=== PATIENT | female | born 1940 | race Caucasian/White ===

== ENCOUNTER 2020-07-12 18:54 | Emergency (ER) | payer MEDICARE ==
--- OUTSIDE RECORDS SUMMARY | 2020-07-12 19:12 | EXTERNAL MEDICAL SUMMARY RPT | Continuity of Care Document ---
:1940 Demographics Phone Unavailable Preferred Language Unknown Marital Status Unknown Sikhism Affiliation Unknown Race Unknown Ethnic Group Unknown Author Organization [facility] Address [address] [place] [address] Phone Allergies Encounters Medications Problems Results
[2020-07-12 19:35] LABS: BASOPHILS # (AUTO) 0.1 10^3/uL (0.0-0.1); BASOPHILS % (AUTO) 1.1 %; EOSINOPHILS # (AUTO) 0.3 10^3/uL (0.0-0.7); EOSINOPHILS % (AUTO) 5.3 %; HCT - HEMATOCRIT 37.2 % (37.0-47.0); LYMPHOCYTES # (AUTO) 1.2 10^3/uL (1.5-3.5); LYMPHOCYTES % (AUTO) 19.9 %; MEAN CORPUSCULAR HEMOGLOBIN 30.2 pg (27.0-31.0); MEAN CORPUSCULAR HGB CONC 32.3 g/dL (32.0-36.0); MEAN CORPUSCULAR VOLUME 93.7 fL (81.0-99.0); MEAN PLATELET VOLUME 9.2 fL (7.9-10.8); MONOCYTES # (AUTO) 0.4 10^3/uL (0.0-1.0); MONOCYTES % (AUTO) 6.3 %; NEUTROPHILS # (AUTO) 4.2 10^3/uL (1.5-6.6); NEUTROPHILS % (AUTO) 67.1 %; PLT - PLATELET COUNT 273 10^3/uL (130-450); RED BLOOD COUNT 3.97 10^6/uL (4.20-5.40); RED CELL DISTRIBUTION WIDTH 13.1 % (12.0-15.0); WHITE BLOOD COUNT 6.2 x10^3/uL (4.8-10.8)
[2020-07-12 19:43] LABS: CALCIUM 8.8 mg/dL (8.5-10.3); CREATININE 0.8 mg/dL (0.4-1.0); POTASSIUM 3.6 mmol/L (3.5-5.0)
--- NOTE | 2020-07-12 19:56 | ED Physician Documentation ---
History of Present Illness - Stated complaint Stated Complaint: LT LEG SWELLING - Chief complaint Chief Complaint: Ext Problem - Additonal information Additional information: 80-year-old female presents to the emergency department for evaluation of acute left lower leg swelling. She reports that about 3 weeks ago she was stepping into a van and felt a pop in the lateral side of her knee. She was in a hurry and did not think much of it. The knee has remained swollen. However this morning when she was getting out of the shower and toweling off she noted that she had fairly significant swelling of the left foot ankle as well as calf. She measured the circumference between the right and left calf and noted a 2 inch variance. She has no history of blood clots or cancer. She is not anticoagulated. No recent immobilizations or surgeries. She is here to ensure that she does not have a deep vein thrombosis. Review of Systems Constitutional: denies: Fever, Chills Eyes: reports: Reviewed and negative Ears: reports: Reviewed and negative Nose: reports: Reviewed and negative Throat: reports: Reviewed and negative Cardiac: reports: Reviewed and negative Respiratory: reports: Reviewed and negative GI: reports: Reviewed and negative : reports: Reviewed and negative Skin: reports: Reviewed and negative Musculoskeletal: reports: Extremity pain (Left calf and left leg.), Extremity swelling Neurologic: reports: Reviewed and negative PD PAST MEDICAL HISTORY - Past Medical History Past Medical History: Yes Cardiovascular: Hypertension Respiratory: None Neuro: None Endocrine/Autoimmune: HyPOthyroidism GI: None FRUIT BUYER: None : None HEENT: Other Psych: None Musculoskeletal: Osteoarthritis Derm: None - Past Surgical History Past Surgical History: Yes General: Cholecystectomy, Appendectomy, Colonoscopy, Other /FRUIT BUYER: Hysterectomy HEENT: Tonsil/Adenoidectomy - Present Medications Home Medications: Ambulatory Orders Medication Instructions Recorded Confirmed Calcium Carbonate [Calcium] 500 mg PO DAILY 01/15/15 04/05/15 Levothyroxine [Synthroid] 25 mcg PO QDAC 01/15/15 04/05/15 Multivitamin [Multivitamins] 1 cap PO DAILY 01/15/15 04/05/15 Ared 1 tab PO BID 07/12/20 Lisinopril [Prinivil] 5 mg PO DAILY 07/12/20 07/12/20 - Allergies Allergies/Adverse Reactions: Allergies Allergy/AdvReac Type Severity Reaction Status Date / Time Penicillins Allergy Rash Verified 07/12/20 19:00 - Social History Does the pt smoke?: No Smoking Status: Never smoker Does the pt drink ETOH?: No Does the pt have substance abuse?: No - Immunizations Immunizations are current?: Yes - POLST Patient has POLST: No PD ED PE EXPANDED - General General: Alert, No acute distress, Well developed/nourished - Cardiac Cardiac: Regular Rate, Radial strong equal, Pedal strong equal, Cap refill < 2 sec - Respiratory Respiratory: Clear to ausultation chandan. No: Distress, Labored - Abdomen Abdomen: Normal Bowel sounds. No: Tender to palpation - Extremities Extremities: Normal, Tenderness, Pedal edema L (Swelling with mild erythema of the left lower anterior leg and medial ankle. Swelling extends from the ankle to the mid calf with posterior calf pain tenderness elicited.), Left calf TTP/cord. No: Deformity - Neuro Neuro: Alert and Oriented X 3, CNII-XII intact - GCS Eye Opening: Spontaneous Motor: Obeys Commands Verbal: Oriented Total: 15 Results - Vitals Vitals: Vital Signs - 24 hr 07/12/20 19:00 Temperature 36.5 C Heart Rate 82 Respiratory 16 Rate Blood Pressure 168/79 H O2 Saturation 98 Oxygen O2 Source Room air - Labs Labs: Laboratory Tests 07/12/20 07/12/20 07/12/20 17:29 19:29 19:29 WBC 6.2 RBC 3.97 L Hgb 12.0 Hct 37.2 MCV 93.7 MCH 30.2 MCHC 32.3 RDW 13.1 Plt Count 273 MPV 9.2 Neut # (Auto) 4.2 Lymph # (Auto) 1.2 L [place] # (Auto) 0.4 Eos # (Auto) 0.3 Baso # (Auto) 0.1 Absolute Nucleated RBC 0.00 Nucleated RBC % 0.0 Sodium 140 Potassium 3.6 Chloride 104 Carbon Dioxide 28 Anion Gap 8.0 BUN 25 H Creatinine 0.8 Estimated GFR (MDRD) 69 L Glucose 117 H Calcium 8.8 C-Reactive Protein < 1.0 - Rads (name of study) US DVT left leg Radiology: EMP read contemporaneously, See rad report, Other (Per radiology technologist no DVT is seen. However there is a fairly large calf hematoma within the gastrocnemius.) PD MEDICAL DECISION MAKING - ED course Complexity details: reviewed results, re-evaluated patient, d/w patient ED course: 80-year-old female presents to the emergency department for evaluation of acute left lower leg swelling and calf pain that she noted this morning when she got out of the shower. However this does follow a history about 3 weeks ago when she felt a pop in her left knee when getting into a van. She denies any falls trauma bumps or bruises otherwise. She does have some mild erythema of the lower anterior leg. She has no fevers. Screening labs reveal no leukocytosis. CRP is not elevated. My suspicion for acute infection or cellulitis is low. Will defer antibiotics. We did get an ultrasound of the lower extremity giving the posterior calf pain swelling and tenderness. Thankfully no DVT is seen however there is a rather large hematoma seen within the gastrocnemius itself. The etiology of this is unclear at this time. These findings were discussed with the patient. She is to be discharged home. We do recommend elevation of the leg ice for discomfort. Emergent return precautions were discussed for increased swelling, worsening pain, fevers red streaking or failure of symptoms to resolve. Departure - Departure Disposition: 01 Home, Self Care Clinical Impression: Hematoma Condition: Stable Record reviewed to determine appropriate education?: Yes Instructions: ED Hematoma Comments: Margaret you are seen in the emergency department today for acute swelling and pain in your left lower leg. We did do screening labs to check for signs of infection and these were reassuringly normal. We also did an ultrasound to look for a possible blood clot. Thankfully no deep vein thrombosis or blood clot is seen. However the ultrasound does show that you have a fairly large hematoma in your gastrocnemius or calf muscle. The cause of this is not clear at this time. Most hematomas will resolve on their own. Warm compress or ice can be used to help with any discomfort. Gentle massage can also be used. In rare cases some hematomas will not resolve on their own and may need. Therefore if you have increased swelling, worsening pain worsening redness or fevers please return to the ER for a second evaluati on. Please discuss this emergency department visit with your primary care doctor as soon as you are able.
--- NOTE | 2020-07-12 20:35 | XRAY Report ---
PROCEDURE: Ankle 3 View LT INDICATIONS: swelling TECHNIQUE: 3 views of the ankle were acquired. COMPARISON: None FINDINGS: No acute fracture. Screw fixation of the lateral malleolus. The hardware appears intact without evide nce of loosening. Tibiotalar joint degeneration, mild. There is diffuse midfoot sclerosis and spurrin g IMPRESSION: No acute fracture identified. Postsurgical and chronic degenerative changes. Reviewed by: Lonnie Lainez MD on 07/12/2020 8:34 PM PDT Approved by: Lonnie Lainez MD on 07/12/2020 8:34 PM PDT Station ID: [id number]
[2020-07-12 21:42] VITALS: BP 161/97
--- NOTE | 2020-07-12 21:44 | Ultrasound Report ---
PROCEDURE: Duplex Ext Veins Left INDICATIONS: left leg swelling after pop in knee TECHNIQUE: Real-time imaging, as well as color and pulse Doppler interrogation, were performed of the lower extr emity deep veins from the inguinal ligament to the popliteal fossa. COMPARISON: None. FINDINGS: The deep veins are normally compressible, and free of intraluminal thrombus. Color and pu lse Doppler demonstrate normal phasic intraluminal flow. There is normal augmentation response to di stal compression maneuver. The calf veins are not well visualized secondary to severe edema. 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 There is a complex fluid collection the posterior calf measuring 6.1 x 1.0 x 4.7 cm suggestive of intramuscular hematoma. IMPRESSION: No evidence of deep venous thrombosis. Complex fluid collection within the posterior calf suggestive of intramuscular hematoma Covington's cyst Reviewed by: Lonnie Lainez MD on 07/12/2020 9:43 PM PDT Approved by: Lonnie Lainez MD on 07/12/2020 9:43 PM PDT Station ID: [id number]
== END 2020-07-12 21:42 | disposition home or self-care (01) ==
LOC: ED 18:54
DX: M79.81 Nontraumatic hematoma of soft tissue (principal); M79.662 Pain in left lower leg; M71.22 Synovial cyst of popliteal space [Baker], left knee; I10 Essential (primary) hypertension
CPT/HCPCS: 36415; 80048; 85025; 86140; 99283; 99284

== ENCOUNTER 2023-07-07 11:18 | Emergency (ER) | payer MEDICARE ==
--- NOTE | 2023-07-07 12:03 | ED Physician Documentation ---
PD HPI BACK PAIN - Stated complaint Stated Complaint: LWR BACK PX - Chief complaint Chief Complaint: Back Pain - History obtained from History obtained from: Patient - History of Present Illness Timing - onset: How many months ago (2) Timing - duration: Months (2) Timing - details: Gradual onset Pain level max: 5 Pain level now: 5 Location: Lower, Right, Left Quality: Pain, Spasm, Similar to prior episodes Associated symptoms: No: Fever, Weakness, Numbness, Incontinent of urine, Unable to urinate, Hematuria, Incontinent of stool Improves with: Rest Worsened by: Movement Contributing factors: Other (fell about 2 months ago, negative xrays at that time. states has continued pain.). No: Anticoagulated, Cancer, IVDA Review of Systems Constitutional: denies: Fever, Chills Respiratory: denies: Cough GI: denies: Nausea, Vomiting, Diarrhea Skin: denies: Rash Musculoskeletal: denies: Neck pain, Back pain Neurologic: denies: Headache PD PAST MEDICAL HISTORY - Past Medical History Past Medical History: Yes Cardiovascular: Hypertension Respiratory: None Neuro: None Endocrine/Autoimmune: HyPOthyroidism GI: None OBSTETRICIAN AND GYNAECOLOGIST: Fibroids : None HEENT: Other Psych: None Musculoskeletal: Osteoarthritis Derm: None - Past Surgical History Past Surgical History: Yes General: Cholecystectomy, Appendectomy, Colonoscopy, Other /OBSTETRICIAN AND GYNAECOLOGIST: Hysterectomy HEENT: Tonsil/Adenoidectomy - Present Medications Home Medications: Ambulatory Orders Medication Instructions Recorded Confirmed Calcium Carbonate [Calcium] 500 mg PO DAILY 01/15/15 07/07/23 Levothyroxine [Synthroid] 25 mcg PO QDAC 01/15/15 07/07/23 Multivitamin [Multivitamins] 1 cap PO DAILY 01/15/15 07/07/23 Ared 1 tab PO BID 07/12/20 07/07/23 lisinopriL [Prinivil] 5 mg PO DAILY 07/12/20 07/07/23 HYDROcod/ACETAM 5/325 [[place] 5/325] 1 - 2 ea PO Q6H PRN #14 tablet 07/07/23 - Allergies Allergies/Adverse Reactions: Allergies Allergy/AdvReac Type Severity Reaction Status Date / Time Penicillins Allergy Rash Verified 07/07/23 11:39 - Social History Does the pt smoke?: No Smoking Status: Never smoker Does the pt drink ETOH?: No Does the pt have substance abuse?: No - Immunizations Immunizations are current?: Yes - POLST Patient has POLST: No PD ED PE NORMAL - Vitals Vital signs reviewed: Yes - General General: Alert and oriented X 3, No acute distress - HEENT HEENT: Moist mucous membranes - Neck Neck: Supple, no meningeal sign, No bony TTP - Cardiac Cardiac: RRR, Strong equal pulses - Respiratory Respiratory: No respiratory distress, Clear bilaterally - Abdomen Abdomen: Soft, Non tender, Non distended - Back Back: No CVA TTP, No spinal TTP, Other (No midline tenderness to palpation or percussion. No step-off or deformity.) - Derm Derm: Warm and dry - Extremities Extremities: No edema, No calf tenderness / cord - Neuro Neuro: Alert and oriented X 3, No motor deficit, No sensory deficit, Other (Normal bilateral lower extremity patellar and ankle jerk reflexes. Normal great toe extension bilaterally. no saddle anesthesia) - Psych Psych: Normal mood, Normal affect Results - Vitals Vitals: Vital Signs - 24 hr 07/07/23 07/07/23 11:41 13:19 Temperature 36.5 C Heart Rate 76 78 Respiratory 16 18 Rate Blood Pressure 127/70 124/76 O2 Saturation 99 98 Oxygen O2 Source Room air - Labs Labs: Laboratory Tests 07/07/23 11:55 Urine Color YELLOW Urine Clarity CLEAR Urine pH 6.5 Ur Specific [place] 1.015 Urine Protein NEGATIVE Urine Glucose (UA) NEGATIVE Urine Ketones NEGATIVE Urine Occult Blood NEGATIVE Urine Nitrite NEGATIVE Urine Bilirubin NEGATIVE Urine Urobilinogen 0.2 (NORMAL) Ur Leukocyte Esterase NEGATIVE Ur Microscopic Review NOT INDICATED Urine Culture Comments NOT INDICATED PD Medical Decision Making - ED course Complexity details: reviewed results, re-evaluated patient, considered differential (No cauda equina, no spinal epidural abscess, no fracture, no aortic dissection or evidence of aneursym rupture), d/w patient ED course: No acute findings on x-ray. No abnormalities on urinalysis. Appears to be an acute exacerbation of her chronic pain. No indication for CT or MRI emergently today. Will place on pain medications for home and have her follow-up with her PCP for further care. No evidence of cauda equina, epidural abscess. Patient did develop right upper quadrant pain while in the emergency department. She has had a cholecystectomy in the past. Bedside ultrasound reveals a normal- appearing liver. Normal-appearing kidney. No hydronephrosis. No nausea or vomiting. No diarrhea. No constipation. We will have the patient monitor this pain at home and return if she worsens. Can consider laboratory testing at that time. Recommend that she follow-up closely with her PCP for further care. Abdomen is soft, nontender nondistended on serial exam. Patient counseled regarding signs and symptoms for which I believe and urgent re-evaluation would be necessary. Patient with good understanding of and agreement to plan and is comfortable going home at this time This document was made in part using voice recognition software. While efforts are made to proofread this document, sound alike and grammatical errors may occur. Departure - Departure Disposition: Home, Self Care Clinical Impression: Low back pain Qualifiers: Chronicity: acute Back pain laterality: bilateral Sciatica presence: without sciatica Qualified Code(s): M54.50 - Low back pain, unspecified Condition: Good Instructions: ED Neck Back Pain General Follow-Up: Jaime Nam PA [Primary Care Provider] - Prescriptions: HYDROcod/ACETAM 5/325 [[place] 5/325] 1 - 2 ea PO Q6H PRN #14 tablet PRN Reason: Pain Comments: Your urinalysis and x-ray do not show any acute abnormalities today. You do have a significant arthritis in your spine. You also have what is called an anterolisthesis of L4-L5, these are not new. Please follow-up with your doctor for further care and further evaluation. Your doctor may want to consider an MRI of your back. I am prescribing a short course of narcotic pain medication for you. These are potentially dangerous and addictive medications that should be used carefully. These medications may constipate you. Take an [id number] stool softener (docusate) twice daily with plenty of water while taking these medications. If you go 24 hours without a bowel movement, take [id number] miralax, per package instructions. Do not drink or drive while taking these medications. If you received narcotic or sedating medications while in the emergency department, do not drive for 24 hours. Store this medication in a safe, secure place and out of reach of children. It is a violation of federal law to give or sell this medication to another person or to use in a manner other than prescribed. The ED will not refill narcotic prescriptions, including prescriptions lost or stolen. To dispose of unwanted medications: 1. [facility] at [address] in [place] has a medication drop box. They accept prescription medications (in pill form) Saturday through Saturday 9:00 a.m. to 5:00 p.m. 2. The [facility] accepts prescription medications (in pill form only) for disposal year round. Call for more information. 3. Contact the [facility] for the next [facility] sponsored prescription drug collection event. , [phone], or [phone]; Discharge Date/Time: 07/07/23 13:19
--- NOTE | 2023-07-07 12:41 | XRAY Report ---
PROCEDURE: Lumbar Spine 2-3V INDICATIONS: low back pain, fall 2 months ago TECHNIQUE: 3 views of the lumbar spine were acquired. COMPARISON: None. FINDINGS: Bones: 5 [id number] vertebrae are present. Grade 2 anterolisthesis of L4 and L5. Grade 2 kashif listhesis of L5 on S1. No vertebral body compression fractures. No suspicious bony lesions. Mild d isc height loss. Soft tissues: Overlying bowel gas pattern is normal. No suspicious soft tissue calcifications. Vas cular calcifications. Surgical clips overlie the right abdomen. IMPRESSION: No acute fracture identified by radiograph. Anterolisthesis of L4 and L5. Reviewed by: Julio Waller MD on 07/07/2023 11:39 AM STEPHANIA Approved by: Julio Waller MD on 07/07/2023 11:39 AM STEPHANIA Station ID: [id number]
[2023-07-07 12:44] LABS: BILIRUBIN,URINE NEGATIVE (NEGATIVE); CLARITY,URINE CLEAR (CLEAR); GLUCOSE, URINE (UA) NEGATIVE (NEGATIVE); KETONES,URINE (UA) NEGATIVE (NEGATIVE); LEUKOCYTE ESTERASE, URINE NEGATIVE (NEGATIVE); NITRITE,URINE NEGATIVE (NEGATIVE); OCCULT BLOOD,URINE NEGATIVE (NEGATIVE); PH,URINE 6.5 PH (5.0-7.5); PROTEIN,URINE NEGATIVE (NEGATIVE); UROBILINOGEN,URINE 0.2 (NORMAL) E.U./dL (NORMAL)
[2023-07-07 13:22] VITALS: BP 124/76; O2SAT 98
== END 2023-07-07 13:19 | disposition home or self-care (01) ==
LOC: ED 11:18
DX: M54.50 Low back pain, unspecified (principal); I10 Essential (primary) hypertension; E03.9 Hypothyroidism, unspecified; W19.XXXA Unspecified fall, initial encounter
CPT/HCPCS: 81001; 81003; 87086; 99284

== ENCOUNTER 2024-02-23 17:28 | Inpatient (IN) ==
--- NOTE | 2024-02-23 17:55 | ED Physician Documentation ---
History of Present Illness Stated complaint Stated Complaint: GENERALIZED WEAKNESS Chief complaint Chief Complaint: General History obtained from History obtained from: Patient Additonal information Additional information: She has a history of stage IV appendiceal cancer. She lives at home with her who has his own health issues. No other and home care. She is getting palliative care and there was a discussion of home health, but they have not started it yet. She presents feeling quite weak, today she got so weak that she had to crawl around the house because she could not walk. She thinks is because of poor appetite. She has had a 35 pound weight loss in the last 3 months. She is still getting chemotherapy. She denies any pain. Has been moving her bowels. No fevers or chills. No urinary complaints. Meds/Allgy Home Medications Ambulatory Orders Medication Instructions Recorded Confirmed multivitamin 1 cap PO DAILY 01/15/15 02/18/24 levothyroxine 75 mcg tablet 75 mcg PO QDAC 12/14/23 02/18/24 vitamins A,C,W-pzks-swlnuf 2,148 2 tab PO BID 12/14/23 02/18/24 mcg-113 mg-45 mg-17.4 mg tablet (PreserVision AREDS) ascorbic acid (vitamin C) 500 mg 500 mg PO QDAY 02/02/24 02/18/24 capsule calcium carbonate 500 mg PO BID 02/02/24 02/18/24 dicyclomine 10 mg capsule 10 mg PO QID PRN abdominal pain 02/02/24 02/18/24 #120 caps ondansetron HCl 8 mg tablet 8 mg PO TID PRN 02/02/24 02/18/24 prochlorperazine maleate 10 mg 10 mg PO TID PRN nausea and 02/02/24 02/18/24 tablet vomiting sennosides 8.6 mg capsule (senna) 8.6 mg PO QDAY 02/02/24 02/18/24 compression socks, medium #1 ea 02/18/24 02/18/24 furosemide 20 mg tablet 20 mg PO QDAY 02/18/24 02/18/24 furosemide 40 mg tablet 40 mg PO QDAY #60 tabs 02/18/24 02/18/24 lidocaine 5 % topical patch 1 patch topical DAILY PRN pain #10 02/18/24 02/18/24 patches potassium chloride 10 mEq 20 meq (2 x 10 mEq) PO Q OTHER DAY 02/18/24 02/18/24 tablet,extended release (Klor-Con) #60 tabs loperamide 2 mg capsule (Imodium 2 mg PO QID PRN loose stool #30 02/20/24 A-D) caps Allergies Allergies Allergy/AdvReac Type Severity Reaction Status Date / Time Penicillins Allergy Rash Verified 02/23/24 17:45 [facility] Medical History Medical History (Updated 02/23/24 @ 20:17 by Miguel Wu MD) Swelling of both lower extremities Essential hypertension Osteoporosis Hypothyroidism Appendicitis Gall stone Surgical History Surgical History History of ankle surgery S/P cholecystectomy History of appendectomy H/O: hysterectomy Social History Social History Smoking Status: Never smoker Do you dip or chew tobacco?: No Do you vape?: No Living arrangement: At home Marital Status: Living Condition: With spouse/s.o. Support Person: Yes Relationship: Living Situation Details: Eldest Physical Activity: Walking Level: Assisted Home Mobility Equipment: [employer] Physical - Functional Details: Was walking couple miles independently until recently Do you feel safe in your home environment?: Yes Suffered physical, verbal, emotional, or financial abuse?: No History of Abuse: No ETOH Use: None Substance Use: denies use Are you sexually active?: No Are you following a diet prescribed by a doctor: No Are you following a special diet: No POLST Patient has POLST: Yes POLST Status: DNR (Selective measures only) Exam Constitutional She appears chronically but not acutely ill and cachectic Respiratory breath sounds equal bilaterally, normal respiratory effort and clear to auscultation bilaterally Cardiovascular normal heart rate noted, regular rhythm noted and no murmur Gastrointestinal abdomen soft to palpation and nontender to palpation Extremities Bilateral pedal edema with weeping of the right foot especially. The swelling is better than it has been she says but the weeping is worse and more painful and cellulitic with cellulitis of the entire right foot. Neurology GCS 15 Results Vitals Vitals: Vital Signs - 24 hr 02/23/24 17:39 02/23/24 18:15 02/23/24 18:30 Temperature 36.4 C L Pulse Rate 80 75 67 Respiratory Rate 18 15 Blood Pressure 94/55 L 86/54 L 81/53 L O2 Saturation 90 L 97 100 O2 Source Room air Room air Pain Intensity 4 4 02/23/24 19:00 02/23/24 19:30 Temperature Pulse Rate 70 75 Respiratory Rate 18 Blood Pressure 94/58 L 101/61 O2 Saturation 100 100 O2 Source Room air Room air Pain Intensity 4 4 Oxygen O2 Source Room air Labs Labs: Laboratory Tests 02/23/24 02/23/24 18:54 19:34 WBC 15.8 H RBC 2.93 L Hgb 7.9 L Hct 25.6 L MCV 87.4 MCH 27.0 MCHC 30.9 L RDW 18.2 H Plt Count 159 MPV 10.2 Neut # (Auto) 14.1 H Lymph # (Auto) 0.9 L [place] # (Auto) 0.7 Eos # (Auto) 0.0 Baso # (Auto) 0.0 Absolute Nucleated RBC 0.05 Nucleated RBC % 0.3 Sodium 139 Potassium 3.4 L Chloride 100 L Carbon Dioxide 32 Anion Gap 7.0 BUN 50 H Creatinine 0.9 Estimated GFR (MDRD) 60 L Glucose 99 Lactic Acid 1.2 Calcium 7.5 L Phosphorus 3.3 Magnesium 1.7 Total Bilirubin 0.3 AST 22 ALT 17 Alkaline Phosphatase 53 Total Creatine Kinase 86 Total Protein 3.6 L Albumin 2.2 L Globulin 1.4 L Albumin/Globulin Ratio 1.6 Urine Color YELLOW Urine Clarity CLEAR Urine pH 6.0 Ur Specific [place] 1.015 Urine Protein NEGATIVE Urine Glucose (UA) NEGATIVE Urine Ketones NEGATIVE Urine Occult Blood NEGATIVE Urine Nitrite NEGATIVE Urine Bilirubin NEGATIVE Urine Urobilinogen 0.2 (NORMAL) Ur Leukocyte Esterase NEGATIVE Ur Microscopic Review NOT INDICATED Urine Culture Comments NOT INDICATED PD Medical Decision Making ED course ED course: 84-year-old woman with stage IV appendiceal carcinoma presents with generalized weakness potentially due to poor appetite and dehydration. Will gently hydrate her. She has had recent problems with fluid overload as well. The right foot is angry and cellulitic. She does have an elevated white count. Blood pressure soft initially. Improved to 101/60 after IV fluids. No UTI. No pulmonary symptoms. She was still very weak after rehydration and could not sit up unassisted. Decision to admit was made at 8:15 PM on February 23, 2024, unfortunately no beds available in the hospital so will be boarding on IV antibiotics until that changes or she improves. Granddaughter updated by phone. Discharge Plan Discharge Patient Disposition: 66 [facility] DC/Xfer Condition: Serious Clinical Impression: Severe protein-calorie malnutrition, Peritoneal carcinomatosis, Weakness, Cellulitis of foot, right Prescriptions: No Action loperamide [Imodium A-D] 2 mg capsule 2 mg PO QID PRN (Reason: loose stool) Qty: 30 0RF multivitamin 1 EACH capsule 1 cap PO DAILY PreserVision AREDS 2,148 mcg-113 mg-45 mg-17.4mg tablet 2 tab PO BID Rx Instructions: administer with AM and PM meals levothyroxine 75 mcg tablet 75 mcg PO QDAC (DME) compression socks, medium Misc See Rx Instructions .Route Qty: 1 0RF Rx Instructions: As directed lidocaine 5 % adhesive patch,medicated 1 patch topical DAILY PRN (Reason: pain) Qty: 10 0RF Rx Instructions: apply to affected area for 12 hours and then off for 12 hours. ondansetron HCl 8 mg tablet 8 mg PO TID PRN Rx Instructions: Take every 6-8 hours as needed for nausea prochlorperazine maleate 10 mg tablet 10 mg PO TID PRN (Reason: nausea and vomiting) Rx Instructions: Take as 2nd antinausea med senna 8.6 mg capsule 8.6 mg PO QDAY calcium carbonate 500 mg calcium (1,250 mg) tablet,chewable 500 mg PO BID dicyclomine 10 mg capsule 10 mg PO QID PRN (Reason: abdominal pain) Qty: 120 2RF Rx Instructions: Start with 1-2 tabs daily. If does not help, then may take up to 2 more. ascorbic acid (vitamin C) 500 mg capsule 500 mg PO QDAY Rx Instructions: Take with iron daily furosemide 20 mg tablet 20 mg PO QDAY Rx Instructions: Take with 40 mg daily AM = 60 mg daily furosemide 40 mg tablet 40 mg PO QDAY Qty: 60 3RF Rx Instructions: Take with 20 mg daily AM = 60 mg daily potassium chloride [Klor-Con 10] 10 mEq tablet extended release 20 meq PO Q OTHER DAY Qty: 60 3RF Rx Instructions: Take with furosemide every other day Print Language: Romanian Stand Alone Forms: PCP List
[2024-02-23] MEDS: SODIUM CHLORIDE 0.9% 1,000 ML IV STA (18:30)
[2024-02-23 19:00] LABS: BASOPHILS % (AUTO) 0.2 %; HCT - HEMATOCRIT 25.6 % (37.0-47.0); HGB - HEMOGLOBIN 7.9 g/dL (12.0-16.0); LYMPHOCYTES # (AUTO) 0.9 10^3/uL (1.5-3.5); LYMPHOCYTES % (AUTO) 5.9 %; MEAN CORPUSCULAR HGB CONC 30.9 g/dL (32.0-36.0); MEAN CORPUSCULAR VOLUME 87.4 fL (81.0-99.0); MEAN PLATELET VOLUME 10.2 fL (7.9-10.8); MONOCYTES # (AUTO) 0.7 10^3/uL (0.0-1.0); MONOCYTES % (AUTO) 4.5 %; NEUTROPHILS # (AUTO) 14.1 10^3/uL (1.5-6.6); NEUTROPHILS % (AUTO) 88.9 %; NRBC ABSOLUTE COUNT (AUTO) 0.05 x10^3/uL; NUCLEATED RED BLOOD CELLS AUTO 0.3 /100WBC; PLT - PLATELET COUNT 159 10^3/uL (130-450); RED BLOOD COUNT 2.93 10^6/uL (4.20-5.40); RED CELL DISTRIBUTION WIDTH 18.2 % (12.0-15.0); WHITE BLOOD COUNT 15.8 x10^3/uL (4.8-10.8)
[2024-02-23 19:20] LABS: ALBUMIN 2.2 g/dL (3.2-5.5); ALBUMIN/GLOBULIN RATIO 1.6 (1.0-2.2); BILIRUBIN,TOTAL 0.3 mg/dL (0.2-1.0); CALCIUM 7.5 mg/dL (8.5-10.3); CREATININE 0.9 mg/dL (0.6-1.3); MAGNESIUM 1.7 mg/dL (1.7-2.3); PHOSPHORUS 3.3 mg/dL (2.5-5.0); POTASSIUM 3.4 mmol/L (3.5-4.5); TOTAL PROTEIN 3.6 g/dL (6.4-8.9)
[2024-02-23 19:40] LABS: BILIRUBIN,URINE NEGATIVE (NEGATIVE); GLUCOSE, URINE (UA) NEGATIVE (NEGATIVE); KETONES,URINE (UA) NEGATIVE (NEGATIVE); LEUKOCYTE ESTERASE, URINE NEGATIVE (NEGATIVE); NITRITE,URINE NEGATIVE (NEGATIVE); OCCULT BLOOD,URINE NEGATIVE (NEGATIVE); PROTEIN,URINE NEGATIVE (NEGATIVE); UROBILINOGEN,URINE 0.2 (NORMAL) E.U./dL (NORMAL)
[2024-02-23 19:52] LABS: CLARITY,URINE CLEAR (CLEAR)
[2024-02-23] MEDS ORDERED: ceFAZolin 1 GM VIAL IVP SCH (21:00)
[2024-02-23] MEDS: ceFAZolin 1 GM VIAL IVP STA (21:11)
[2024-02-23] MEDS ORDERED: ONDANSETRON 4 MG/2 ML VIAL IVP PRN (22:02)
[2024-02-23] MEDS ORDERED: ACETAMINOPHEN 500 MG TABLET PO PRN (22:02)
[2024-02-24 05:33] LABS: BASOPHILS % (AUTO) 0.1 %; EOSINOPHILS % (AUTO) 0.1 %; HCT - HEMATOCRIT 25.9 % (37.0-47.0); LYMPHOCYTES # (AUTO) 1.1 10^3/uL (1.5-3.5); LYMPHOCYTES % (AUTO) 7.3 %; MEAN CORPUSCULAR HEMOGLOBIN 26.8 pg (27.0-31.0); MEAN CORPUSCULAR HGB CONC 30.9 g/dL (32.0-36.0); MEAN CORPUSCULAR VOLUME 86.9 fL (81.0-99.0); MEAN PLATELET VOLUME 9.8 fL (7.9-10.8); MONOCYTES # (AUTO) 0.6 10^3/uL (0.0-1.0); MONOCYTES % (AUTO) 4.2 %; NEUTROPHILS # (AUTO) 12.6 10^3/uL (1.5-6.6); NEUTROPHILS % (AUTO) 87.7 %; PLT - PLATELET COUNT 185 10^3/uL (130-450); RED BLOOD COUNT 2.98 10^6/uL (4.20-5.40); RED CELL DISTRIBUTION WIDTH 18.3 % (12.0-15.0); WHITE BLOOD COUNT 14.4 x10^3/uL (4.8-10.8)
[2024-02-24 05:47] LABS: CALCIUM 7.4 mg/dL (8.5-10.3); CREATININE 0.7 mg/dL (0.6-1.3); POTASSIUM 2.8 mmol/L (3.5-4.5)
[2024-02-24] MEDS: LEVOTHYROXINE 75 MCG TABLET PO SCH (07:00)
[2024-02-24] MEDS: PANTOPRAZOLE 40 MG TABLET PO SCH (07:00)
[2024-02-24] MEDS: CALCIUM GLUC 1,000MG/50ML-NACL 1,000 MG/50 ML BAG IV STA (08:10)
[2024-02-24] MEDS: POTASSIUM CHLOR 10 MEQ/100 ML 10 MEQ/100 ML BAG IV ONE (09:15)
[2024-02-24] MEDS: MULTIVITAMIN TABLET PO SCH (09:15)
[2024-02-24] MEDS: ceFAZolin 1 GM VIAL IVP SCH (09:50)
[2024-02-24] MEDS: ENOXAPARIN 40 MG/0.4 ML SYRINGE SUBQ SCH (09:51)
--- NOTE | 2024-02-24 15:43 | PHARMACY PROGRESS NOTE ---
Best Possible Medication History Admit Date and Time: Home Medications Medication Instructions Recorded Confirmed Type multivitamin 1 cap PO DAILY 01/15/15 02/23/24 History levothyroxine 75 mcg tablet 75 mcg PO QDAC 12/14/23 02/23/24 History vitamins A,C,M-cppv-ndclsf 2,148 1 tab PO BID 12/14/23 02/24/24 History mcg-113 mg-45 mg-17.4 mg tablet (PreserVision AREDS) ascorbic acid (vitamin C) 500 mg 500 mg PO QDAY 02/02/24 02/23/24 History capsule calcium carbonate 500 mg PO BID 02/02/24 02/23/24 History dicyclomine 10 mg capsule 10 mg PO QID PRN abdominal pain 02/02/24 02/23/24 Rx #120 caps prochlorperazine maleate 10 mg 10 mg PO TID PRN nausea and 02/02/24 02/23/24 History tablet vomiting compression socks, medium #1 ea 02/18/24 02/23/24 Rx furosemide 20 mg tablet 20 mg PO BID 02/18/24 02/24/24 History lidocaine 5 % topical patch 1 patch topical DAILY PRN pain #10 02/18/24 02/23/24 Rx patches potassium chloride 10 mEq 20 meq (2 x 10 mEq) PO Q OTHER DAY 02/18/24 02/23/24 Rx tablet,extended release (Klor-Con) #60 tabs loperamide 2 mg capsule (Imodium 2 mg PO QID PRN loose stool #30 02/20/24 02/23/24 Rx A-D) caps Processed by: Pharmacy (Medication reconciliation completed by Sticker OperatorReyes) Medications reviewed in ED?: Yes Medication History completed: Yes Patient Interview: Completed [facility] Statement: As the person ultimately responsible for medication therapy, providers are able to order a medication from an existing home medication list in [facility] via the "Reconcile Routine" prior to Confirmation of that medication by ground crewman aircraft support. Such practice is discouraged except when the physician, in their clinical judgment, deems that a medical need exists for a medication without regard to previous use.
--- NOTE | 2024-02-24 16:57 | HISTORY & PHYSICAL EXAMINATION ---
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 She states that she lives in a two-story floor house, and was having difficulty going up the stairs. She said she crawled up. She was not lightheaded or dizzy, nor did she fall, but she did say that she felt pretty weak as she was try to go up. She says that she has not been eating and drinking much. She also states that she has had some loose stools. She has had about 2-3 bowel movements per day. This is fairly normal for her. She is on home Imodium. She denies any fevers, chills, shortness of breath, cough. She has chronic swelling of her bilateral lower extremities. She has been taking her Lasix at home. Her left foot has multiple blisters with erythema surrounding it. She states it looks better than prior. There is some purulent discharge coming out of one of the bullae. Her last chemotherapy was 02/12. She is continuing with chemotherapy. She sees Dr. Church. I did review the last note by him on 02/12. At that time, she remained on FOLFOX therapy. She would like to continue with this as well. In the ED, patient has been hypotensive with blood pressure in the 90s over 50s, heart rate was 74, respiratory rate was 77, she has been afebrile, saturating 99% on room air. She has a leukocytosis of 14.4, anemia with hemoglobin of 8, potassium of 2.8, CRP is elevated at 27.5. Urinalysis was negative. Meds/Allgy Home Medications Ambulatory Orders Medication Instructions Recorded Confirmed multivitamin 1 cap PO DAILY 01/15/15 02/23/24 levothyroxine 75 mcg tablet 75 mcg PO QDAC 12/14/23 02/23/24 vitamins A,C,G-nkdk-qonhfx 2,148 1 tab PO BID 12/14/23 02/24/24 mcg-113 mg-45 mg-17.4 mg tablet (PreserVision AREDS) ascorbic acid (vitamin C) 500 mg 500 mg PO QDAY 02/02/24 02/23/24 capsule calcium carbonate 500 mg PO BID 02/02/24 02/23/24 dicyclomine 10 mg capsule 10 mg PO QID PRN abdominal pain 02/02/24 02/23/24 #120 caps prochlorperazine maleate 10 mg 10 mg PO TID PRN nausea and 02/02/24 02/23/24 tablet vomiting compression socks, medium #1 ea 02/18/24 02/23/24 furosemide 20 mg tablet 20 mg PO BID 02/18/24 02/24/24 lidocaine 5 % topical patch 1 patch topical DAILY PRN pain #10 02/18/24 02/23/24 patches potassium chloride 10 mEq 20 meq (2 x 10 mEq) PO Q OTHER DAY 02/18/24 02/23/24 tablet,extended release (Klor-Con) #60 tabs loperamide 2 mg capsule (Imodium 2 mg PO QID PRN loose stool #30 02/20/24 02/23/24 A-D) caps Allergies Allergies Allergy/AdvReac Type Severity Reaction Status Date / Time Penicillins Allergy Rash Verified 02/23/24 17:45 [facility] Medical History Medical History Swelling of both lower extremities Essential hypertension Osteoporosis Hypothyroidism Appendicitis Gall stone Surgical History Surgical History History of ankle surgery S/P cholecystectomy History of appendectomy H/O: hysterectomy Social History Social History Smoking Status: Never smoker Do you dip or chew tobacco?: No Do you vape?: No Living arrangement: At home Marital Status: Living Condition: With spouse/s.o. Support Person: Yes Relationship: Living Situation Details: Eldest Physical Activity: Walking Level: Assisted Home Mobility Equipment: Cane and Walker Physical - Functional Details: Was walking couple miles independently until recently Do you feel safe in your home environment?: Yes Suffered physical, verbal, emotional, or financial abuse?: No History of Abuse: No ETOH Use: None Substance Use: denies use Are you sexually active?: No Are you following a diet prescribed by a doctor: No Are you following a special diet: No POLST Patient has POLST: Yes POLST Status: DNR (Selective measures only) Review of Systems Constitutional Reports: Fatigue, Malaise, Weakness, Poor appetite and Weight loss; Denies: Fever, Chills, Diaphoresis, Night sweats or Changes in appetite or eating habits Eyes Denies: Pain, Irritation, Amaurosis, Blurry vision or Floaters Ears, nose, mouth, and throat Denies: Ear pain, Ear discharge, Hearing loss, Hearing aids, Change in hearing, Nasal pain, Nose bleeds, Nasal congestion, Post nasal drip, Nasal obstruction or Throat swelling Cardiovascular Reports: edema and swelling of feet/ankles; Denies: Irregular heart rate, chest pain, palpitations or shortness of breath with exertion Respiratory Denies: Shortness of breath, Cough, Sputum production, Wheezing or Apnea Gastrointestinal Denies: Abdominal pain, Nausea, Vomiting, Diarrhea or Constipation Genitourinary Denies: Painful urination, Urinary frequency, Urinary urgency, Nocturia or Urinary incontinence Musculoskeletal Reports: Back pain, Extremity pain and Extremity swelling Integumentary/Breast Reports: Rash, Redness, Skin pain, Skin tenderness, Skin swelling and Sores; Denies: Itching or Dryness Neurological Reports: General weakness; Denies: Focal weakness, Weakness in extremities or Numbness in extremities Psychiatric Denies: Depression, Anxiety, Mood swings or Panic attacks Endocrine Reports: Fatigue; Denies: Excessive urination, Excessive thirst or Polyphagia Hematologic/Lymphatic Reports: Easy bruising and Petechiae Allergic/Immunologic Denies: Hives, Throat swelling or Wheezing Prior Level of Functionality: Lives at home with . Ambulates with cane. Exam Constitutional abnormal general appearance (chronically ill) and (frail appearing), no apparent distress, abnormal body habitus (cachectic), (thin) and (underweight) and alert HENMT normocephalic, head/scalp atraumatic and hearing grossly normal bilaterally Eyes PERRL, EOMs intact bilaterally and conjunctivae normal Chest inspection of chest normal and palpation of chest normal Mediport in place in R chest wall Respiratory breath sounds equal bilaterally, normal respiratory effort, no wheezes, no rales, no retractions and no use of accessory muscles Cardiovascular normal heart rate noted, regular rhythm noted, no gallop, no rub and no murmur Gastrointestinal abdomen abnormal to inspection (multiple surgical scars noted), tender to palpation (mild) and (periumbilical), normoactive bowel sounds and no hepatosplenomegaly Back/Pelvis spine normal to inspection and no thoracic spine tenderness Extremities normal to inspection, normal to palpation and full ROM Neurology no movement abnormality noted Psychiatry oriented x3, thought process normal, cooperative and affect normal Skin rash noted (multiple bullae on right foot; erythema,drainage) and petechiae noted (petechiae noted on hands) Conclusion/Plan Problem List (1) Cellulitis of foot, right: Plan: Patient has had lower extremity swelling with multiple bullae. Notes reviewed from palliative care on 02/12they did mention these bullae. At this time, they have ruptured, and there is some erythema, with some serosanguineous drainage around the area. Continue cefazolin for superimposed cellulitis. Wound culture ordered, pending. Continue to trend leukocytosis. If downtrending, can likely transition to oral antibiotics tomorrow. (2) Hypokalemia: Plan: Repleted, continue to trend. Patient with loose stools at baseline. Likely due to underlying malignancy. Continue home Imodium. (3) Weakness: Plan: Patient states that she does have home health care. She has a daughter and son that are close by. She lives with her who helps with activities of daily living. She is not interested in [facility]ci facility at this time. She is okay with working with physical therapy and Occupational Therapy while she is here, will consult them. (4) Severe protein-calorie malnutrition: Plan: Patient continues with severe protein calorie malnutrition. Continue to encourage p.o. intake, nutrition consulted, appreciate recommendations. (5) Malignant neoplasm of appendix: Plan: Patient presented with appendicitis, and had appendectomy done in 01/15/2015. Showed invasive adenocarcinoma with focal mucinous features, it was well- differentiated. She had spread to the peritoneum since. She also spread to the colon with a segmental colectomy done. She also had lymph node spread. She follows up with Dr. Church. She receives FOLFOX. Her last session was 01/29/2024. She would like to continue chemotherapy. (6) Hypothyroidism: Plan: Continue levothyroxine. Qualifiers: Hypothyroidism type: unspecified Qualified Code(s): E03.9 - Hypothyroidism, unspecified Lab Results Lab results reviewed: Yes 02/24/24 05:30 02/24/24 16:42 Diagnostic Imaging Results Diagnostic Imaging Results: positive Final report reviewed
[2024-02-24 17:44] LABS: CALCIUM 7.6 mg/dL (8.5-10.3); CREATININE 0.8 mg/dL (0.6-1.3); POTASSIUM 3.3 mmol/L (3.5-4.5)
[2024-02-24] MEDS: POTASSIUM CHLORIDE INJ 40 MEQ in SODIUM CHLORIDE 0.9% 500 ML IV ONE (18:03)
[2024-02-24] MEDS: POTASSIUM CHLORIDE 20 MEQ TABLET PO STA (18:11)
[2024-02-24] MEDS: POTASSIUM CHLOR 10 MEQ/100 ML 10 MEQ/100 ML BAG IV SCH (18:13)
[2024-02-24] MEDS ORDERED: ACETAMINOPHEN 325 MG TABLET PO PRN (18:18)
[2024-02-24] MEDS ORDERED: PROCHLORPERAZINE 10 MG/2 ML VIAL IVP PRN (18:18)
[2024-02-24] MEDS ORDERED: HYDROcod/ACETAM 5/325 MG TABLET PO PRN (18:18)
[2024-02-24] MEDS ORDERED: LOPERAMIDE 2 MG CAPSULE PO PRN (18:18)
[2024-02-24] MEDS ORDERED: ONDANSETRON ODT 4 MG TABLET TL PRN (18:18)
[2024-02-24] MEDS ORDERED: ONDANSETRON 4 MG/2 ML VIAL IVP PRN (18:18)
[2024-02-24] MEDS: SODIUM CHLORIDE FLUSH 0.9% 10 ML SYRINGE IVP SCH (18:47)
[2024-02-24] MEDS: ASCORBIC ACID 500 MG TABLET PO SCH (18:56)
[2024-02-24] MEDS ORDERED: ALTEPLASE 2 MG VIAL IR PRN (20:30)
[2024-02-24] MEDS: SODIUM CHLORIDE FLUSH 0.9% 10 ML SYRINGE IVP PRN (21:47)
[2024-02-25 04:58] LABS: HCT - HEMATOCRIT 23.9 % (37.0-47.0); HGB - HEMOGLOBIN 7.3 g/dL (12.0-16.0); MEAN CORPUSCULAR HEMOGLOBIN 26.8 pg (27.0-31.0); MEAN CORPUSCULAR HGB CONC 30.5 g/dL (32.0-36.0); MEAN CORPUSCULAR VOLUME 87.9 fL (81.0-99.0); MEAN PLATELET VOLUME 10.2 fL (7.9-10.8); RED BLOOD COUNT 2.72 10^6/uL (4.20-5.40); RED CELL DISTRIBUTION WIDTH 18.4 % (12.0-15.0); WHITE BLOOD COUNT 12.4 x10^3/uL (4.8-10.8)
[2024-02-25 05:19] LABS: CALCIUM 7.1 mg/dL (8.5-10.3); CREATININE 0.6 mg/dL (0.6-1.3); MAGNESIUM 1.8 mg/dL (1.7-2.3); POTASSIUM 3.9 mmol/L (3.5-4.5)
[2024-02-25] MEDS: LEVOTHYROXINE 75 MCG TABLET PO SCH (06:17)
[2024-02-25] MEDS: MULTIVITAMIN TABLET PO SCH (08:09)
[2024-02-25] MEDS: ACETAMINOPHEN 325 MG TABLET PO ONE (08:50)
[2024-02-25] MEDS: diphenhydrAMINE 25 MG CAPSULE PO ONE (11:22)
--- NOTE | 2024-02-25 16:50 | PROVIDER PROGRESS NOTE ---
Subjective Prog Note Date Prog Note Date: 02/25/24 Prog Note Time: 16:48 Subjective Pt reports feeling: Worse Subjective: Nursing reports that she appears more confused. Weaker this morning. Stool is now much darker. Patient herself feels like she is about the same. She denies abdominal pain. She just has no appetite and she just feels incredibly fatigued. does find it difficult to get out of bed by herself. In reviewing her orders the Ancef and Lovenox are under the ER provider. I am asking pharmacy to change into my orders. Current Medications Current Medications Current Medications: Current Medications Generic Name Dose Route Start Last Admin Trade Name Freq PRN Reason Stop Dose Admin Acetaminophen 650 mg 02/24/24 18:18 Acetaminophen 325 Mg Tablet PO Q4HR PRN Pain 1 to 4, or Fever Hydrocodone Bitart/Acetaminophen 1 tab 02/24/24 18:18 Hydrocod/Acetam 5/325 Mg Tablet PO Q4HR PRN Pain 5 to 7 Alteplase, Recombinant 2 mg 02/24/24 20:30 Alteplase 2 Mg Vial IR 02/25/24 20:29 ONCE PRN Clogged port Ascorbic Acid 500 mg 02/24/24 18:18 02/24/24 18:56 Ascorbic Acid 500 Mg Tablet PO 500 mg QD JAYCEE Administration Cefazolin Sodium 1 gm 02/24/24 09:00 02/25/24 08:36 Cefazolin 1 Gm Vial IVP 1 gm Q12H JAYCEE Administration Enoxaparin Sodium 40 mg 02/24/24 09:00 02/25/24 08:36 Enoxaparin 40 Mg/0.4 Ml Syringe SUBQ 40 mg DAILY JAYCEE Administration Heparin Sodium (Beef Lung) 30 - 50 unit 02/24/24 21:51 02/24/24 22:53 Heparin Flush 50 Units/5 Ml Syringe IVP 40 unit PRN PRN Administration Port Protocol (<24 hours) Heparin Sodium (Beef Lung) 300 - 500 unit 02/24/24 21:51 Heparin Flush 500 Units/5 Ml Syringe IVP PRN PRN Port Protocol (>24 hours) Levothyroxine Sodium 75 mcg 02/25/24 07:00 02/25/24 06:17 Levothyroxine 75 Mcg Tablet PO 75 mcg QDAC JAYCEE Administration Loperamide HCl 2 mg 02/24/24 18:18 Loperamide 2 Mg Capsule PO QID PRN loose stool Multivitamins 1 tab 02/25/24 08:00 02/25/24 08:09 Multivitamin Tablet PO 1 tab DAILYWM JAYCEE Administration Ondansetron HCl 4 mg 02/24/24 18:18 Ondansetron Odt 4 Mg Tablet TL Q6HR PRN Nausea / Vomiting Ondansetron HCl 4 mg 02/24/24 18:18 Ondansetron 4 Mg/2 Ml Vial IVP Q6HR PRN Nausea / Vomiting Pantoprazole Sodium 40 mg 02/24/24 07:00 02/25/24 06:17 Pantoprazole 40 Mg Tablet PO 40 mg QDAC JAYCEE Administration Prochlorperazine Edisylate 10 mg 02/24/24 18:18 Prochlorperazine 10 Mg/2 Ml Vial IVP Q6HR PRN Nausea / Vomiting Sodium Chloride 10 ml 02/24/24 18:18 02/24/24 22:53 Sodium Chloride Flush 0.9% 10 Ml Syringe IVP 10 ml PRN PRN Administration NEEDED PER PROVIDER ORDERS Sodium Chloride 10 ml 02/24/24 18:18 02/25/24 08:48 Sodium Chloride Flush 0.9% 10 Ml Syringe IVP 10 ml 0100,0900,1700 JAYCEE Administration Objective Vital Signs/Intake & Output Reviewed Vital Signs: Yes Vital Signs: Vital Signs x48h Temp Pulse Resp BP Pulse Ox 02/25/24 14:22 36.6 C 75 14 108/66 99 02/25/24 13:49 36.6 C 74 16 99/55 L 95 02/25/24 11:32 36.7 C 76 14 103/53 L 92 02/25/24 11:14 36.6 C 74 103/60 92 Intake & Output: Intake & Output 02/22/24 02/23/24 02/24/24 02/25/24 23:59 23:59 23:59 23:59 Intake Total 1000 / 1000 250 / 250 530 / 530 Balance 1000 / 1000 250 / 250 530 / 530 Weight (kg) 45.359 kg 45.3 kg Objective General Appearance: positive No acute distress, Alert and Other (I reviewed her vitals and there is no fever, and no change in her blood pressure. She is oriented to person and place. But no insight to why she is here) Eyes Bilateral: positive PERRL ENT: positive No signs of dehydration Neck: positive No JVD; negative Stiff neck Respiratory: positive No respiratory distress; negative Wheezes, Rales or Rhonchi Cardiovascular: positive Regular rate & rhythm Abdomen: positive Non-tender, No organomegaly and Nml bowel sounds Skin: positive Other (redness is reduced from RLE but still red, edematous. less edema. ) Extremities: positive Full ROM Neurologic/Psychiatric: positive Motor nml (but diffuse weakness), Disoriented to time and Other (she tells me she hallucinates with her chemo drugs and is doing so now. She feels she can see a hole in the wall and she is going to fall thru it. ) Lab Results 02/25/24 04:48 02/25/24 04:48 Other Labs: Lab Results x24hrs 02/25/24 02/25/24 02/24/24 Range/Units 09:40 04:48 16:42 WBC 12.4 H (4.8-10.8) x10^3/uL RBC 2.72 L (4.20-5.40) 10^6/uL Hgb 7.3 L (12.0-16.0) g/dL Hct 23.9 L (37.0-47.0) % MCV 87.9 (81.0-99.0) fL MCH 26.8 L (27.0-31.0) pg MCHC 30.5 L (32.0-36.0) g/dL RDW 18.4 H (12.0-15.0) % Plt Count 211 (130-450) 10^3/uL MPV 10.2 (7.9-10.8) fL ESR 29 (0-30) mm/Hr Sodium 139 139 (135-145) mmol/L Potassium 3.9 3.3 L (3.5-4.5) mmol/L Chloride 103 101 (101-111) mmol/L Carbon Dioxide 33 H 33 H (21-32) mmol/L Anion Gap 3.0 L 5.0 L (6-13) BUN 42 H 47 H (6-20) mg/dL Creatinine 0.6 0.8 (0.6-1.3) mg/dL Estimated GFR (MDRD) 95 69 L (>89) Glucose 114 H 122 H (74-104) mg/dL Calcium 7.1 L 7.6 L (8.5-10.3) mg/dL Magnesium 1.8 (1.7-2.3) mg/dL C-Reactive Protein 27.5 H (<0.5) mg/dL Blood Type A POSITIVE Blood Type Recheck A POSITIVE Antibody Screen NEGATIVE Crossmatch IS Only See Detail Assessment/Plan Problem List (1) Cellulitis of foot, right: Impression: Today is a first time seeing this patient. Nursing reports that the redness and purulent changes are definitely improving. Today there is still redness, and no purulence. He reports he with the bullous blisters have popped and there is just skin. I reviewed her labs. So she seems to be improving from her white cell count was 15.8 on admission and has been coming down and it is 12.4 today. Objective data. ESR was 29 yesterday. Due to her confusion and weakness and not clear improvement of cellulitis I will change her from observation status to inpatient status. Continue the antibiotics. Continue to monitor the white cell count and also check a sed rate and C- reactive protein tomorrow (2) Anemia due to chemotherapy: Impression: She has responded with her white cell count. She was 1.6 and has now rebounded to normal levels. However hemoglobin is lagging. Today she is confused, weaker. More tired. I will transfuse 1 unit of blood. (3) Hypokalemia: Impression: On admission she was 2.8. She was supplemented and went to 3.3 yesterday afternoon. Today she is normal at 3.9. I will continue to trend and monitor and supplement as necessary (4) Weakness: Impression: She is 84 years old. 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 This illness has not helped and that she has generalized weakness. She has severe protein calorie malnutrition. We are working on nutritional status. Nutrition services is seeing her and consulting on how to improve her appetite and add calories. Physical therapy does not need to see her and that this patient is ambulating with the help of nurse. I am going to have a progressive ambulation protocol instituted. (5) Severe protein-calorie malnutrition: Impression: Again, nutrition services is seeing her. We are working on improving nutrition with supplements with each meal. (6) Malignant neoplasm of appendix: Impression: She had an appendectomy in December 2014 and was found to have invasive adenocarcinoma with focal mucinous features. She was pT2 N0. She then had a bowel obstruction and underwent a segmental colectomy March 2015 and she had appendiceal orifice scar. No lymph nodes positive. Then in November 2023 she presented as abdominal pain with dilated loops on CT of the abdomen. She had a right iliac fossa mass biopsy which confirmed metastatic moderately differentiated adenocarcinoma. FOLFOX was started in January 2024. She has had edema of both feet with it. The edema then cause blisters with rupture the blisters. Palliative care is seeing her to help with abdominal pain and constipation. Those symptoms are resolved with palliative care will continue to monitor. She is regularly monitored by oncology. She was last seen February 04. FOLFOX was the following week. (7) Hypothyroidism: Impression: No TSH. Will check tomorrow's level to see if it needs to be adjusted. However this patient's appetite or lack thereof may be changing her ability to take her thyroid medication and absorbing appropriately. Qualifiers: Hypothyroidism type: unspecified Qualified Code(s): E03.9 - Hypothyroidism, unspecified
[2024-02-26 05:07] LABS: EOSINOPHILS # (AUTO) 0.1 10^3/uL (0.0-0.7); EOSINOPHILS % (AUTO) 0.8 %; HCT - HEMATOCRIT 27.4 % (37.0-47.0); HGB - HEMOGLOBIN 9.1 g/dL (12.0-16.0); LYMPHOCYTES # (AUTO) 1.2 10^3/uL (1.5-3.5); LYMPHOCYTES % (AUTO) 15.2 %; MEAN CORPUSCULAR HEMOGLOBIN 28.4 pg (27.0-31.0); MEAN CORPUSCULAR HGB CONC 33.2 g/dL (32.0-36.0); MEAN CORPUSCULAR VOLUME 85.6 fL (81.0-99.0); MEAN PLATELET VOLUME 9.6 fL (7.9-10.8); MONOCYTES # (AUTO) 0.5 10^3/uL (0.0-1.0); MONOCYTES % (AUTO) 5.7 %; NEUTROPHILS # (AUTO) 6.2 10^3/uL (1.5-6.6); NEUTROPHILS % (AUTO) 77.8 %; NRBC ABSOLUTE COUNT (AUTO) 0.06 x10^3/uL; NUCLEATED RED BLOOD CELLS AUTO 0.8 /100WBC; PLT - PLATELET COUNT 217 10^3/uL (130-450); RED CELL DISTRIBUTION WIDTH 17.2 % (12.0-15.0); WHITE BLOOD COUNT 7.9 x10^3/uL (4.8-10.8)
[2024-02-26 05:22] LABS: ALBUMIN 1.9 g/dL (3.2-5.5); ALBUMIN/GLOBULIN RATIO 1.2 (1.0-2.2); BILIRUBIN,TOTAL 0.3 mg/dL (0.2-1.0); CREATININE 0.5 mg/dL (0.6-1.3); POTASSIUM 3.8 mmol/L (3.5-4.5); TOTAL PROTEIN 3.5 g/dL (6.4-8.9)
[2024-02-26 08:39] LABS: BASOPHILS % (AUTO) 0.1 %; EOSINOPHILS # (AUTO) 0.1 10^3/uL (0.0-0.7); EOSINOPHILS % (AUTO) 1.1 %; HCT - HEMATOCRIT 31.2 % (37.0-47.0); HGB - HEMOGLOBIN 9.9 g/dL (12.0-16.0); LYMPHOCYTES # (AUTO) 1.2 10^3/uL (1.5-3.5); LYMPHOCYTES % (AUTO) 14.4 %; MEAN CORPUSCULAR HEMOGLOBIN 27.6 pg (27.0-31.0); MEAN CORPUSCULAR HGB CONC 31.7 g/dL (32.0-36.0); MEAN CORPUSCULAR VOLUME 86.9 fL (81.0-99.0); MEAN PLATELET VOLUME 9.6 fL (7.9-10.8); MONOCYTES # (AUTO) 0.5 10^3/uL (0.0-1.0); MONOCYTES % (AUTO) 5.5 %; NEUTROPHILS # (AUTO) 6.6 10^3/uL (1.5-6.6); NEUTROPHILS % (AUTO) 78.4 %; NRBC ABSOLUTE COUNT (AUTO) 0.06 x10^3/uL; NUCLEATED RED BLOOD CELLS AUTO 0.7 /100WBC; PLT - PLATELET COUNT 244 10^3/uL (130-450); RED BLOOD COUNT 3.59 10^6/uL (4.20-5.40); RED CELL DISTRIBUTION WIDTH 17.2 % (12.0-15.0); WHITE BLOOD COUNT 8.4 x10^3/uL (4.8-10.8)
[2024-02-26 08:58] LABS: ALBUMIN 2.1 g/dL (3.2-5.5); ALBUMIN/GLOBULIN RATIO 1.2 (1.0-2.2); BILIRUBIN,TOTAL 0.3 mg/dL (0.2-1.0); CALCIUM 7.2 mg/dL (8.5-10.3); CREATININE 0.5 mg/dL (0.6-1.3); POTASSIUM 3.8 mmol/L (3.5-4.5); TOTAL PROTEIN 3.9 g/dL (6.4-8.9)
--- NOTE | 2024-02-26 14:56 | PROVIDER PROGRESS NOTE ---
Documented by User: Myles Ramirez 02/26/24 18:54 Subjective Prog Note Date Prog Note Date: 02/26/24 Prog Note Time: 14:48 Subjective Pt reports feeling: Improved Subjective: Margaret was cheerful and upbeat this morning, stating that she felt very well rested and more "with it" today after sleeping well last night. She states that her R foot still hurts and she is concerned about her foot. She denies all additional pain in the morning. By this evening, she states that the swelling in her foot is reduced but is still present. She remains in good spirits, is fully alert and oriented to person, place, location, and events; A&Ox 4/. Current Medications Current Medications Current Medications: Current Medications Generic Name Dose Route Start Last Admin Trade Name Freq PRN Reason Stop Dose Admin Acetaminophen 650 mg 02/24/24 18:18 Acetaminophen 325 Mg Tablet PO Q4HR PRN Pain 1 to 4, or Fever Hydrocodone Bitart/Acetaminophen 1 tab 02/24/24 18:18 Hydrocod/Acetam 5/325 Mg Tablet PO Q4HR PRN Pain 5 to 7 Ascorbic Acid 500 mg 02/24/24 18:18 02/25/24 18:21 Ascorbic Acid 500 Mg Tablet PO 500 mg QD JAYCEE Administration Cefazolin Sodium 1 gm 02/24/24 09:00 02/26/24 08:24 Cefazolin 1 Gm Vial IVP 1 gm Q12H JAYCEE Administration Enoxaparin Sodium 40 mg 02/24/24 09:00 02/26/24 08:25 Enoxaparin 40 Mg/0.4 Ml Syringe SUBQ 40 mg DAILY JAYCEE Administration Heparin Sodium (Beef Lung) 30 - 50 unit 02/24/24 21:51 02/24/24 22:53 Heparin Flush 50 Units/5 Ml Syringe IVP 40 unit PRN PRN Administration Port Protocol (<24 hours) Heparin Sodium (Beef Lung) 300 - 500 unit 02/24/24 21:51 Heparin Flush 500 Units/5 Ml Syringe IVP PRN PRN Port Protocol (>24 hours) Levothyroxine Sodium 75 mcg 02/25/24 07:00 02/26/24 04:59 Levothyroxine 75 Mcg Tablet PO 75 mcg QDAC JAYCEE Administration Loperamide HCl 2 mg 02/24/24 18:18 Loperamide 2 Mg Capsule PO QID PRN loose stool Multivitamins 1 tab 02/25/24 08:00 02/26/24 08:24 Multivitamin Tablet PO 1 tab DAILYWM JAYCEE Administration Ondansetron HCl 4 mg 02/24/24 18:18 Ondansetron Odt 4 Mg Tablet TL Q6HR PRN Nausea / Vomiting Ondansetron HCl 4 mg 02/24/24 18:18 Ondansetron 4 Mg/2 Ml Vial IVP Q6HR PRN Nausea / Vomiting Pantoprazole Sodium 40 mg 02/24/24 07:00 02/26/24 04:59 Pantoprazole 40 Mg Tablet PO 40 mg QDAC JAYCEE Administration Prochlorperazine Edisylate 10 mg 02/24/24 18:18 Prochlorperazine 10 Mg/2 Ml Vial IVP Q6HR PRN Nausea / Vomiting Sodium Chloride 10 ml 02/24/24 18:18 02/24/24 22:53 Sodium Chloride Flush 0.9% 10 Ml Syringe IVP 10 ml PRN PRN Administration NEEDED PER PROVIDER ORDERS Sodium Chloride 10 ml 02/24/24 18:18 02/26/24 08:24 Sodium Chloride Flush 0.9% 10 Ml Syringe IVP 10 ml 0100,0900,1700 JAYCEE Administration Objective Vital Signs/Intake & Output Vital Signs: Vital Signs x48h Temp Pulse Resp BP Pulse Ox 02/26/24 13:38 37 C 84 16 139/82 H 97 02/26/24 08:08 37 C 77 16 113/63 97 Intake & Output: Intake & Output 02/23/24 02/24/24 02/25/24 02/26/24 23:59 23:59 23:59 23:59 Intake Total 1000 / 1000 250 / 250 530 / 530 590 / 590 Balance 1000 / 1000 250 / 250 530 / 530 590 / 590 Weight (kg) 45.359 kg 45.3 kg Objective General Appearance: positive No acute distress, Alert and Other Eyes Bilateral: positive PERRL ENT: positive ENT inspection nml and No signs of dehydration Neck: positive Nml inspection, No JVD and Trachea midline Respiratory: positive Chest non-tender, No respiratory distress and Breath sounds nml Cardiovascular: positive Regular rate & rhythm, No murmur and No gallop Peripheral Pulses: 1+: Dorsalis pedis (R) (pitting pedal edema, pulse is palpable, 3 second cap refill on big toe) and 2+: Radial (R), 2+: Radial (L) and 2+: Dorsalis pedis (L) (pitting pedal edema, pulse is palpable, 2 second cap refill) Abdomen: positive Non-tender and No organomegaly Skin: positive Color nml Extremities: positive Pedal edema (Significant R sided pitting pedal edema, grade 3. Grade 2 pitting edema on L lower extremity.) Neurologic/Psychiatric: positive Oriented x3 (fully alert and oriented; person, place, time, and events.) Lab Results 02/26/24 08:31 02/26/24 08:31 Other Labs: Lab Results x24hrs 02/26/24 02/26/24 02/25/24 Range/Units 08:31 04:59 09:40 WBC 8.4 7.9 (4.8-10.8) x10^3/uL RBC 3.59 L 3.20 L (4.20-5.40) 10^6/uL Hgb 9.9 L 9.1 L (12.0-16.0) g/dL Hct 31.2 L 27.4 L (37.0-47.0) % MCV 86.9 85.6 (81.0-99.0) fL MCH 27.6 28.4 (27.0-31.0) pg MCHC 31.7 L 33.2 (32.0-36.0) g/dL RDW 17.2 H 17.2 H (12.0-15.0) % Plt Count 244 217 (130-450) 10^3/uL MPV 9.6 9.6 (7.9-10.8) fL Neut # (Auto) 6.6 6.2 (1.5-6.6) 10^3/uL Lymph # (Auto) 1.2 L 1.2 L (1.5-3.5) 10^3/uL [place] # (Auto) 0.5 0.5 (0.0-1.0) 10^3/uL Eos # (Auto) 0.1 0.1 (0.0-0.7) 10^3/uL Baso # (Auto) 0.0 0.0 (0.0-0.1) 10^3/uL Absolute Nucleated RBC 0.06 0.06 x10^3/uL Nucleated RBC % 0.7 0.8 /100WBC Sodium 138 140 (135-145) mmol/L Potassium 3.8 3.8 (3.5-4.5) mmol/L Chloride 104 104 (101-111) mmol/L Carbon Dioxide 32 33 H (21-32) mmol/L Anion Gap 2.0 L 3.0 L (6-13) BUN 27 H 29 H (6-20) mg/dL Creatinine 0.5 L 0.5 L (0.6-1.3) mg/dL Estimated GFR (MDRD) 118 118 (>89) Glucose 94 94 (74-104) mg/dL Calcium 7.2 L 7.0 L (8.5-10.3) mg/dL Total Bilirubin 0.3 0.3 (0.2-1.0) mg/dL AST 17 16 (10-42) IU/L ALT 10 9 L (10-60) IU/L Alkaline Phosphatase 62 56 (42-121) IU/L Total Protein 3.9 L 3.5 L (6.4-8.9) g/dL Albumin 2.1 L 1.9 L (3.2-5.5) g/dL Globulin 1.8 L 1.6 L (2.1-4.2) g/dL Albumin/Globulin Ratio 1.2 1.2 (1.0-2.2) Crossmatch IS Only See Detail Other Results/Comments Other Results/Comments: Bladimir's right foot presents with pitting edema, the skin is hot to the touch, slightly erythematous. 4x closed, non-purulent, healing, stage 2 ulcers noted on the dorsal aspect of the foot, no discharge noted. A closed bullae [id number] is located distal to the closed ulcers, with 2x smaller serous filled vesicles surrounding the ulcers noted. Bandage of the R foot was changed utilizing zero-form, multiple 4x4s and gauze roll at 16:49. ABX Reporting Has patient been on IV antibiotics over the past 48 hours?: Yes Sepsis Event Note (H) Evaluation Current Stage of Sepsis: Ruled out Assessment/Plan Problem List (1) Cellulitis of foot, right: Impression: * Pitting edema of the R foot. * 4x stage 2 ulcers on the dorsal aspect of the foot. Closed, healing, non- purulent. * Bullea and vesicles surrounding the ulcers remain intact * Dressing changed on 02/26/2024: zero form, 4x4, gauze roll Plan * Daily wound assessment and dressing change (2) Anemia due to chemotherapy: Impression: * Resolved, Pt at baseline level * current RBC 3.59 post PRBC infusion on 02/25/24. * After review of her RBC counts since 2014, this is her baseline level Plan * Continue to monitor CBC. Initiate additional unit of PRBC if RBC levels drop below 3 (her baseline) (3) Hypokalemia: Impression: * Resolved Currently CMP shows K= 3.8mmol/L (4) Weakness: Impression: * Patient states that she feels significantly more active and stronger today * Patient will continue PT daily and disposition will be established after PT evaluates her mobility and ability to preform ADLs. (5) Malignant neoplasm of appendix: Impression: * Chemotherapy is being handled by her oncologist MD Church. Documented by User: Naya Baum MD 02/26/24 18:55 Objective Lab Results 02/26/24 08:31 02/26/24 08:31 Assessment/Plan Problem List (1) Cellulitis of foot, right: (2) Anemia due to chemotherapy: (3) Hypokalemia: (4) Weakness: (5) Malignant neoplasm of appendix:
--- NOTE | 2024-02-26 15:59 | OT Plan of Care ---
OT Inpatient POC Diagnosis DIAGNOSIS Diagnosis: L foot cellulitis Chief Complaint: Weakness, poor PO intake Onset of Chief Complaint: 1-2 days [employer] MEDICAL/SURGICAL HISTORY Medical History Swelling of both lower extremities Essential hypertension Osteoporosis Hypothyroidism Appendicitis Gall stone Surgical History History of ankle surgery S/P cholecystectomy History of appendectomy H/O: hysterectomy Assessment and Goals -Activities of Daily Living Improve Upper Extremity Dressing to:: Modified Independent Improve Lower Extremity Dressing to:: Modified Independent Improve Grooming/Hygiene to:: Modified Independent Improve Bathing to:: Modified Independent Improve Toileting to:: Modified Independent OT Inpatient Plan PLAN Treatment Frequency: 1x/day Duration: Until discharge -Discharge Recommendations Discharge Location: Previous Living Situation Support/Services Needed: Home Health O.T. Transport Needs at Discharge: Personal vehicle
--- NOTE | 2024-02-26 16:05 | OT Plan of Care ---
OT Inpatient POC Diagnosis DIAGNOSIS Diagnosis: L foot cellulitis Chief Complaint: Weakness, poor PO intake Onset of Chief Complaint: 1-2 days [employer] MEDICAL/SURGICAL HISTORY Medical History Swelling of both lower extremities Essential hypertension Osteoporosis Hypothyroidism Appendicitis Gall stone Surgical History History of ankle surgery S/P cholecystectomy History of appendectomy H/O: hysterectomy Assessment and Goals ASSESSMENT Assessment: Pt is a 84 y.o female adm with 1-2 days weakness and poor PO intake; Found to have L foot cellulitis. Pt met sitting in chair, A&Ox4, follows all commands appropriately. Performed sit to stand and ambulation to/from bathroom using RW CGA- Toilet tx and hygiene MIN A - Anticipate indp with cont progression of therapy in acute setting. Overall presents with decreased endurance, activity tolerance and ADL status. Cont OT services and rec d/c with HHOT. -Activities of Daily Living Improve Upper Extremity Dressing to:: Modified Independent Improve Lower Extremity Dressing to:: Modified Independent Improve Grooming/Hygiene to:: Modified Independent Improve Bathing to:: Modified Independent Improve Toileting to:: Modified Independent OT Inpatient Plan PLAN Treatment Frequency: 1x/day Duration: Until discharge -Discharge Recommendations Discharge Location: Previous Living Situation Support/Services Needed: Home Health O.T. Transport Needs at Discharge: Personal vehicle
[2024-02-26] MEDS: MIRTAZAPINE 15 MG TABLET PO SCH (21:01)
[2024-02-27 06:26] LABS: BASOPHILS % (AUTO) 0.1 %; EOSINOPHILS # (AUTO) 0.1 10^3/uL (0.0-0.7); EOSINOPHILS % (AUTO) 1.3 %; HCT - HEMATOCRIT 26.2 % (37.0-47.0); HGB - HEMOGLOBIN 8.4 g/dL (12.0-16.0); LYMPHOCYTES # (AUTO) 1.3 10^3/uL (1.5-3.5); LYMPHOCYTES % (AUTO) 18.1 %; MEAN CORPUSCULAR HEMOGLOBIN 28.2 pg (27.0-31.0); MEAN CORPUSCULAR HGB CONC 32.1 g/dL (32.0-36.0); MEAN CORPUSCULAR VOLUME 87.9 fL (81.0-99.0); MEAN PLATELET VOLUME 9.5 fL (7.9-10.8); MONOCYTES # (AUTO) 0.6 10^3/uL (0.0-1.0); NEUTROPHILS % (AUTO) 70.9 %; NRBC ABSOLUTE COUNT (AUTO) 0.03 x10^3/uL; NUCLEATED RED BLOOD CELLS AUTO 0.4 /100WBC; PLT - PLATELET COUNT 190 10^3/uL (130-450); RED BLOOD COUNT 2.98 10^6/uL (4.20-5.40); RED CELL DISTRIBUTION WIDTH 17.2 % (12.0-15.0)
[2024-02-27 07:13] LABS: CALCIUM 6.8 mg/dL (8.5-10.3); CREATININE 0.4 mg/dL (0.6-1.3)
--- NOTE | 2024-02-27 07:15 | PROVIDER PROGRESS NOTE ---
Documented by User: Myles Ramirez 02/27/24 07:15 Current Medications Current Medications Current Medications: Current Medications Generic Name Dose Route Start Last Admin Trade Name Freq PRN Reason Stop Dose Admin Acetaminophen 650 mg 02/24/24 18:18 Acetaminophen 325 Mg Tablet PO Q4HR PRN Pain 1 to 4, or Fever Hydrocodone Bitart/Acetaminophen 1 tab 02/24/24 18:18 Hydrocod/Acetam 5/325 Mg Tablet PO Q4HR PRN Pain 5 to 7 Ascorbic Acid 500 mg 02/24/24 18:18 02/26/24 18:04 Ascorbic Acid 500 Mg Tablet PO 500 mg QD JAYCEE Administration Cefazolin Sodium 1 gm 02/24/24 09:00 02/26/24 21:01 Cefazolin 1 Gm Vial IVP 1 gm Q12H JAYCEE Administration Enoxaparin Sodium 40 mg 02/24/24 09:00 02/26/24 08:25 Enoxaparin 40 Mg/0.4 Ml Syringe SUBQ 40 mg DAILY JAYCEE Administration Heparin Sodium (Beef Lung) 30 - 50 unit 02/24/24 21:51 02/27/24 05:46 Heparin Flush 50 Units/5 Ml Syringe IVP 50 unit PRN PRN Administration Port Protocol (<24 hours) Heparin Sodium (Beef Lung) 300 - 500 unit 02/24/24 21:51 Heparin Flush 500 Units/5 Ml Syringe IVP PRN PRN Port Protocol (>24 hours) Levothyroxine Sodium 75 mcg 02/25/24 07:00 02/27/24 05:47 Levothyroxine 75 Mcg Tablet PO 75 mcg QDAC JAYCEE Administration Loperamide HCl 2 mg 02/24/24 18:18 Loperamide 2 Mg Capsule PO QID PRN loose stool Mirtazapine 15 mg 02/26/24 21:00 02/26/24 21:01 Mirtazapine 15 Mg Tablet PO 15 mg QPM JAYCEE Administration Multivitamins 1 tab 02/25/24 08:00 02/26/24 08:24 Multivitamin Tablet PO 1 tab DAILYWM JAYCEE Administration Ondansetron HCl 4 mg 02/24/24 18:18 Ondansetron Odt 4 Mg Tablet TL Q6HR PRN Nausea / Vomiting Ondansetron HCl 4 mg 02/24/24 18:18 Ondansetron 4 Mg/2 Ml Vial IVP Q6HR PRN Nausea / Vomiting Pantoprazole Sodium 40 mg 02/24/24 07:00 02/27/24 05:47 Pantoprazole 40 Mg Tablet PO 40 mg QDAC JAYCEE Administration Prochlorperazine Edisylate 10 mg 02/24/24 18:18 Prochlorperazine 10 Mg/2 Ml Vial IVP Q6HR PRN Nausea / Vomiting Sodium Chloride 10 ml 02/24/24 18:18 02/27/24 05:47 Sodium Chloride Flush 0.9% 10 Ml Syringe IVP 10 ml PRN PRN Administration NEEDED PER PROVIDER ORDERS Sodium Chloride 10 ml 02/24/24 18:18 02/27/24 01:01 Sodium Chloride Flush 0.9% 10 Ml Syringe IVP 10 ml 0100,0900,1700 JAYCEE Administration Objective Vital Signs/Intake & Output Reviewed Vital Signs: Yes Vital Signs: Vital Signs x48h Temp Pulse Resp BP BP Pulse Ox 02/27/24 05:00 36.8 C 74 16 115/72 97 02/27/24 01:00 37 C 81 16 144/91 H 97 Intake & Output: Intake & Output 02/24/24 02/25/24 02/26/24 02/27/24 23:59 23:59 23:59 23:59 Intake Total 250 / 250 530 / 530 1210 / 1210 Balance 250 / 250 530 / 530 1210 / 1210 Weight (kg) 45.3 kg Lab Results 02/27/24 05:38 02/27/24 05:38 Other Labs: Lab Results x24hrs 02/27/24 02/26/24 Range/Units 05:38 08:31 WBC 7.0 8.4 (4.8-10.8) x10^3/uL RBC 2.98 L 3.59 L (4.20-5.40) 10^6/uL Hgb 8.4 L 9.9 L (12.0-16.0) g/dL Hct 26.2 L 31.2 L (37.0-47.0) % MCV 87.9 86.9 (81.0-99.0) fL MCH 28.2 27.6 (27.0-31.0) pg MCHC 32.1 31.7 L (32.0-36.0) g/dL RDW 17.2 H 17.2 H (12.0-15.0) % Plt Count 190 244 (130-450) 10^3/uL MPV 9.5 9.6 (7.9-10.8) fL Neut # (Auto) 5.0 6.6 (1.5-6.6) 10^3/uL Lymph # (Auto) 1.3 L 1.2 L (1.5-3.5) 10^3/uL [place] # (Auto) 0.6 0.5 (0.0-1.0) 10^3/uL Eos # (Auto) 0.1 0.1 (0.0-0.7) 10^3/uL Baso # (Auto) 0.0 0.0 (0.0-0.1) 10^3/uL Absolute Nucleated RBC 0.03 0.06 x10^3/uL Nucleated RBC % 0.4 0.7 /100WBC Sodium 139 138 (135-145) mmol/L Potassium 4.0 3.8 (3.5-4.5) mmol/L Chloride 105 104 (101-111) mmol/L Carbon Dioxide 31 32 (21-32) mmol/L Anion Gap 3.0 L 2.0 L (6-13) BUN 21 H 27 H (6-20) mg/dL Creatinine 0.4 L 0.5 L (0.6-1.3) mg/dL Estimated GFR (MDRD) 152 118 (>89) Glucose 93 94 (74-104) mg/dL Calcium 6.8 L 7.2 L (8.5-10.3) mg/dL Total Bilirubin 0.3 (0.2-1.0) mg/dL AST 17 (10-42) IU/L ALT 10 (10-60) IU/L Alkaline Phosphatase 62 (42-121) IU/L Total Protein 3.9 L (6.4-8.9) g/dL Albumin 2.1 L (3.2-5.5) g/dL Globulin 1.8 L (2.1-4.2) g/dL Albumin/Globulin Ratio 1.2 (1.0-2.2) ABX Reporting Has patient been on IV antibiotics over the past 48 hours?: Yes Sepsis Event Note (H) Evaluation Current Stage of Sepsis: Ruled out Assessment/Plan Problem List (1) Cellulitis of foot, right: Impression: * Pitting edema of the R foot. * 4x stage 2 ulcers on the dorsal aspect of the foot. Closed, healing, non- purulent. * Bullea and vesicles surrounding the ulcers remain intact * Dressing changed on 02/26/2024: zero form, 4x4, gauze roll Plan * Daily wound assessment and dressing change (2) Anemia due to chemotherapy: Impression: * Resolved, Pt at baseline level * current RBC 3.59 post PRBC infusion on 02/25/24. * After review of her RBC counts since 2014, this is her baseline level Plan * Continue to monitor CBC. Initiate additional unit of PRBC if RBC levels drop below 3 (her baseline) (3) Hypokalemia: Impression: * Resolved Currently CMP shows K= 3.8mmol/L (4) Weakness: Impression: * Patient states that she feels significantly more active and stronger today * Patient will continue PT daily and disposition will be established after PT evaluates her mobility and ability to preform ADLs. (5) Malignant neoplasm of appendix: Impression: * Chemotherapy is being handled by her oncologist MD Church. Documented by User: Naya Baum MD 02/27/24 20:14 Subjective Prog Note Date Prog Note Date: 02/27/24 Prog Note Time: 19:59 Subjective Pt reports feeling: No change Subjective: We discussed discharge yesterday and discharge was planned for today. I had a long discussion with the family about what it happened to her. Son was particularly interested because he is going to become her DPOA and become actively involved in managing her health care. He is worried about his mom who is the primary caregiver for her . She is obviously weaker with her encounter with a healthcare system and it is time for her to worry about herself and worry less about her . Son says that he wants to be involved in the process of making sure mom takes care of herself. I went over her cancer diagnosis, treatment, subsequent pedal edema, the blistering of the skin, and cellulitis. Went over wound care. He is worried about getting enough help and we have arranged for Meals on Wheels. I bluntly told him that the patient is not wanting to get them involved because she does not want to be a burden. But the son says that they are going to get involved and they are thinking of moving her and her to his sister's [place] also explained that I had started her on Remeron to see if that would help her appetite. All this was done in the late morning. Discharge orders were written. And the patient changed her mind. She does not want to go home today and asked that she is appealing her discharge with Medicare. She is afebrile. Normotensive. No longer on any IV medications and is on p.o. medications. Cellulitis is improved. Objective Objective General Appearance: positive No acute distress, Alert and Other (Timely elderly female at 4 foot 11 inches tall, 45.3 kg. Oriented to person, place, time) Eyes Bilateral: positive PERRL ENT: positive Pharynx nml and No signs of dehydration Neck: positive Nml inspection and No JVD; negative Stiff neck Respiratory: positive No respiratory distress and Breath sounds nml; negative Wheezes, Rales or Rhonchi Cardiovascular: positive Regular rate & rhythm and No gallop Abdomen: positive Non-tender, No organomegaly and Nml bowel sounds Skin: positive No rash, Warm, Dry and Other (Top of the right foot is still a little red with occasional blisters and the large eschars. Left foot has no redness. Shrunken skin with trace edema. Right foot and right calf still with 2+ edema.) Extremities: positive Full ROM and Pedal edema; negative Calf tenderness Neurologic/Psychiatric: positive Oriented x3, CN's nml (2-12) and Motor nml (Able to get up to go to the bathroom with 1 standby assist. Got up out of bed and dressed herself without any assist. Feels weak. Fearful about going home) Lab Results 02/27/24 05:38 02/27/24 05:38 Assessment/Plan Problem List (1) Cellulitis of foot, right: Impression: * On admission very densely edematous right foot, red and hot skin, purulent drainage. White cell count was 15.8. White cell count has been normal since yesterday. * Pitting edema of the R foot continues but improved * 4x stage 2 ulcers on the dorsal aspect of the foot. Closed, healing, non- purulent now * Bullea and vesicles surrounding the ulcers remain intact * Dressing changed on 02/26/2024: zero form, 4x4, gauze roll Plan * Daily wound assessment and dressing change * I have explained how to do her wound care by cleaning the wound daily with soap and water. Drying it with a hairspring vibrator. Then putting Vaseline impregnated dressing on top of the eschar. Wrapping with Kerlix. And then on top of that gentle wrapping with Timoteo wrap. She should do that on a daily basis until home health takes over. * change to po keflex. tolerated ancef with hx of PCN allergy * cancel dc and pt will file appeal with medicare. (2) Anemia due to chemotherapy: Impression: * Hemoglobin on admission was 8.8. When she dropped to 7.3 on February 24 I transfused her 1 unit. Her hemoglobin went to 9.9 on February 25. Today she is 8.4. * Continue to monitor CBC. Initiate additional unit of PRBC if Her hemoglobin level drops below 7. * (3) Hypokalemia: Impression: * Resolved Currently CMP shows K= 4.0 mmol/L (4) Weakness: Impression: * Patient states that she feels significantly more active and stronger today * Even better than yesterday. But states that she is still fearful about going home. * PT usmanal read. The patient was resting comfortably sitting up in a recliner and had decreased bilateral upper extremity and lower extremity strength and decreased exercise activity overall. But she is improved from yesterday to today. They continue to recommend discharge to home with home health therapy for further rehab. Tinetti assessment interpretation shows her to be a moderate fall risk. Able to get up out of a chair, have immediate standing balance, with continuous steps. She uses her arms to touch the furniture to then be able to sit down again. (5) Malignant neoplasm of appendix:
--- NOTE | 2024-02-27 09:27 | PT Plan of Care ---
Medical/Surgical Past History Past History Medical History Swelling of both lower extremities Essential hypertension Osteoporosis Hypothyroidism Appendicitis Gall stone Surgical History History of ankle surgery S/P cholecystectomy History of appendectomy H/O: hysterectomy Physical Therapy Plan of Care Prognosis: Good Interventions: Therapeutic Exercise 61843, Gait Training 67699, Manual Therapy 17467, Neuro-muscular Re-Education 32232, Functional Activities 57024, Self Care/Home Management [id number] and Aquatic Therapy [id number]
[2024-02-27] MEDS: cephALEXin 250 MG CAPSULE PO SCH (21:33)
[2024-02-28 06:00] LABS: BASOPHILS % (AUTO) 0.2 %; EOSINOPHILS # (AUTO) 0.1 10^3/uL (0.0-0.7); EOSINOPHILS % (AUTO) 0.5 %; HCT - HEMATOCRIT 30.4 % (37.0-47.0); HGB - HEMOGLOBIN 9.4 g/dL (12.0-16.0); LYMPHOCYTES # (AUTO) 1.2 10^3/uL (1.5-3.5); MEAN CORPUSCULAR HEMOGLOBIN 27.4 pg (27.0-31.0); MEAN CORPUSCULAR HGB CONC 30.9 g/dL (32.0-36.0); MEAN CORPUSCULAR VOLUME 88.6 fL (81.0-99.0); MEAN PLATELET VOLUME 9.3 fL (7.9-10.8); MONOCYTES # (AUTO) 0.8 10^3/uL (0.0-1.0); MONOCYTES % (AUTO) 8.3 %; NEUTROPHILS # (AUTO) 7.1 10^3/uL (1.5-6.6); NEUTROPHILS % (AUTO) 76.7 %; PLT - PLATELET COUNT 213 10^3/uL (130-450); RED BLOOD COUNT 3.43 10^6/uL (4.20-5.40); RED CELL DISTRIBUTION WIDTH 17.4 % (12.0-15.0); WHITE BLOOD COUNT 9.2 x10^3/uL (4.8-10.8)
[2024-02-28 06:34] LABS: CALCIUM 7.2 mg/dL (8.5-10.3); CREATININE 0.5 mg/dL (0.6-1.3)
[2024-02-28 13:21] VITALS: BP 131/78; TEMP 99.1; O2SAT 96
--- NOTE | 2024-02-28 15:53 | Discharge Summary ---
Discharge Summary Admit Date: 02/24/24 Discharge Date: 02/28/24 Discharging Provider: Naya Baum MD Primary Care Provider: BARBARA Amato (Palliative Care) Code Status: Do Not Attempt Resuscitation DIAGNOSES Discharge Diagnoses with Status of Each Condition: 1. Cellulitis of right lower extremity 2. Bulla of bilateral lower extremity 3. 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 Hypokalemia 5. Anemia due to acute blood therapy 6. Generalized weakness 7. Hypophosphatemia 8. Severe protein calorie malnutrition HOSPITAL COURSE Hospital Course: In addition to the cellulitis, part of her presentation was that of confusion, weakness. Her alertness, and weakness gradually improved to the point that she was back to baseline mental acuity. She was treated empirically with IV antibiotic therapy. Wound culture resulted Enterococcus faecalis for the ulcers that were seen on the top of her right foot. Sensitive to ampicillin, gentamicin, linezolid, penicillin, streptomycin and vancomycin. Blood cultures were negative. As such was not felt to be bacteremic. The patient was on Ancef throughout this entire time. Ancef does not cover Enterococcus and treatment is usually penicillin G, ampicillin. However, she did respond with normalization of white cell count. She did not have fevers nor did she require oxygen. Leg edema improved tremendously over the right foot and leg but she still had edema of the R calf in comparison to the L which has shrunk down to wrinkled, closed skin. She still had redness and swelling of the top of the right foot. Purulent drainage resolved. She still has 4 ulcers on top of the foot at the base of the toes. Stage II. She still has bullae at the base of the fourth toe. Wound care was with Xeroform dressing covered by Kerlix wrap. I discussed the case with the wound care nurse who recommended Timoteo wrap on top of that when the patient left the hospital. She had developed generalized weakness due to the fact she had lost 30 pounds since starting her chemo treatment. Had slowed down considerably with physical activity. Physical therapy worked with her and felt that she was safe to go home with home health PT and OT and wound care. They did not feel she was weak enough to require [facility] facility placement. Once the patient's white cell count normalized. Vitals normalized. And she was appropriate to baseline mentation, I felt the patient was stable for discharge. She is identified her son as a DURABLE POWER OF [employer] SHAPER and had a notary do that on the eighth. The son was fully updated on mom's progress. Daughter, son, and [id number] were in the room stating that they recognize mom is going to need more care. Especially since she was the caregiver of her . Their long-term plan is to move her to the [facility] to live with the daughter. In the meantime Meals on Wheels, home health, and help from friends and neighbors was the plan until she completed chemotherapy. As we evaluate the patient for discharge, the patient became fearful. Ladora that we were "kicking her out too early". And appealed her discharge with Medicare. However, on the next day, February 27, the patient decided that she was in fact safe to go home. No longer wanted to do the Medicare appeal and canceled the appeal. I have discharged her with home health PT/OT/social work/wound care/bath aide. I am asking her to see her primary care provider with [facility]. Unfortunately she could not remember the name of that physician when I asked for the name. I do hope to update the physician personally via phone call. The patient is also followed by palliative care in our facility and she will continue to follow-up with palliative care and her oncologist.She is discharged on Keflex for a few more days. Greater than 30 minutes was spent correlating discharge. ALLERGIES Allergies Allergy/AdvReac Type Severity Reaction Status Date / Time Penicillins Allergy Rash Verified 02/23/24 17:45 MEDICATIONS Ambulatory Orders Medication Instructions Recorded Confirmed multivitamin 1 cap PO DAILY 01/15/15 02/23/24 levothyroxine 75 mcg tablet 75 mcg PO QDAC 12/14/23 02/23/24 vitamins A,C,[id number] 2,148 1 tab PO BID 12/14/23 02/24/24 mcg-113 mg-45 mg-17.4 mg tablet (PreserVision AREDS) ascorbic acid (vitamin C) 500 mg 500 mg PO QDAY 02/02/24 02/23/24 capsule calcium carbonate 500 mg PO BID 02/02/24 02/23/24 dicyclomine 10 mg capsule 10 mg PO QID PRN abdominal pain 02/02/24 02/23/24 #120 caps prochlorperazine maleate 10 mg 10 mg PO TID PRN nausea and 02/02/24 02/23/24 tablet vomiting compression socks, medium #1 ea 02/18/24 02/23/24 furosemide 20 mg tablet 20 mg PO BID 02/18/24 02/24/24 lidocaine 5 % topical patch 1 patch topical DAILY PRN pain #10 02/18/24 02/23/24 patches potassium chloride 10 mEq 20 meq (2 x 10 mEq) PO Q OTHER DAY 02/18/24 02/23/24 tablet,extended release (Klor-Con) #60 tabs loperamide 2 mg capsule (Imodium 2 mg PO QID PRN loose stool #30 02/20/24 02/23/24 A-D) caps cephalexin 500 mg capsule 500 mg PO Q8H #14 caps 02/27/24 mirtazapine 15 mg tablet 15 mg PO QPM #30 tabs 02/27/24 PHYSICAL EXAM AT DISCHARGE General Appearance: positive No acute distress, Alert, Anxious and Other (Frail- appearing elderly female who is 4 feet 11 inches tall, 45.3 kg.) ENT: positive Pharynx nml Neck: positive No JVD; negative Stiff neck Respiratory: positive No respiratory distress and Breath sounds nml; negative Wheezes, Rales or Rhonchi Cardiovascular: positive Regular rate & rhythm and Systolic murmur; negative No gallop Abdomen: positive Non-tender, No organomegaly and Nml bowel sounds Skin: positive Warm and Dry Extremities: positive Full ROM and Other (Right calf and foot have 2+ edema. But the right calf is shrinking as evidenced by wrinkled skin around the tib-fib and li area. Top of the right foot sole with redness, some heat. But much improved from admission. For ulcers on top of the foot. Down to fat but not muscle. ) Neurologic/Psychiatric: positive Oriented x3, CN's nml (2-12) and Motor nml LABS 02/28/24 05:56 02/28/24 05:56 SEPSIS Current Stage of Sepsis: Ruled out TIME SPENT Time Spent in Discharge (Minutes): 35 Discharge Plan Discharge Patient Disposition: Home Health Service Condition: Fair Medically Cleared Comments:: Medically cleared February 26. Patient appealed discharge with Medicare. Prescriptions: New mirtazapine 15 mg Tablet 15 mg PO QPM Qty: 30 0RF cephalexin 500 mg capsule 500 mg PO Q8H Qty: 14 0RF Continued loperamide [Imodium A-D] 2 mg capsule 2 mg PO QID PRN (Reason: loose stool) Qty: 30 0RF multivitamin 1 EACH capsule 1 cap PO DAILY PreserVision AREDS 2,148 mcg-113 mg-45 mg-17.4mg tablet 1 tab PO BID Rx Instructions: administer with AM and PM meals levothyroxine 75 mcg tablet 75 mcg PO QDAC (DME) compression socks, medium Misc See Rx Instructions .Route Qty: 1 0RF Rx Instructions: As directed lidocaine 5 % adhesive patch,medicated 1 patch topical DAILY PRN (Reason: pain) Qty: 10 0RF Rx Instructions: apply to affected area for 12 hours and then off for 12 hours. prochlorperazine maleate 10 mg tablet 10 mg PO TID PRN (Reason: nausea and vomiting) Rx Instructions: Take as 2nd antinausea med calcium carbonate 500 mg calcium (1,250 mg) tablet,chewable 500 mg PO BID dicyclomine 10 mg capsule 10 mg PO QID PRN (Reason: abdominal pain) Qty: 120 2RF Rx Instructions: Start with 1-2 tabs daily. If does not help, then may take up to 2 more. 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 You have started treatment with FOLFOX and your last treatment was February 12. Unfortunately the side effect of your treatment is to cause swelling of your legs. The swelling became so severe that your skin was stretched and you developed blisters on the tops of your feet and the blisters broke. You developed an infection of the right foot. You have developed stage II ulcers of the top of your right foot. You came to the emergency room not only because of this but because you have just felt really weak ever since you did your last chemotherapy. We found you to have skin infection of the right foot. And we also found to have a low potassium, dehydration, and malnutrition. The malnutrition is because you are not eating very well due to the chemotherapy. Your leg edema has improved tremendously since being here. Your right foot and right leg are still more swollen than your left. The right foot ulcers are dry, not draining. You still have redness on the top of your foot. You still have a couple of blisters on the top of your right foot. Physical therapy did evaluate you because the chemotherapy and the infection have really affected your strength. You were very weak and tired but physical therapy Wants to get out of bed, walk to the bathroom. Why you needed some stability with a walker, you were still able to do it on your own with standby assist. They do not feel that you need to go to a long term for rehab and can go home with home health physical therapy, Occupational Therapy. Discharge date was February 26. However you still felt fearful about going home. And decided to appeal your discharge with Medicare. On February 27 you decided you going to go home but still need to cancel your appeal with Medicare. Instructions at discharge: 1. Please see your primary care provider in follow-up. You need to be seen regularly, at least every 2 weeks, for follow-up of the foot infection. 2. I am sending you home with Home Health orders for you to get physical therapy, Occupational Therapy, and wound care. Until home health comes to see you, you need to take care of your foot yourself. Clean it with soap and water every day and then dry it very carefully. If you want to use a hairspring vibrator set at a very low setting, you can dry your foot with a hairspring vibrator. After you do that put Xeroform square on it. You put the Xeroform over the infected area. Then you can gently wrap it with Kerlix bandage. I would recommend some form of leg compression with an Timoteo bandage that starts at your toes and goes up the ankle. Once the nurses start to see you at home health, they will give you further orders. In the meantime keep your foot elevated. Do not soak it in a bathtub or a swimming pool. 3. I am giving you a few more days of antibiotics for the foot infection. You are allergic to penicillin. In the hospital we gave you a drug called Ancef or cefazolin. It is a cousin to penicillin and you tolerated it well. As such I am sending you home on the pill form of Ancef. The name is Keflex. You will take that 3 times a day until the pills are gone. 4. We have also identified you is having a 30 pound weight loss in the last 3 months. This is most likely due to your lack of appetite from therapy, and the cancer itself. We have started you on a drug called Remeron. Remeron is an antidepressant but that is not why we are using it. Remeron has 2 side effects. One is it's very relaxing to take at night and helps you sleep better. But the second affect is to increase your appetite and can cause weight gain. Print Language: French Patient Instructions: Chronic Venous Insufficiency Ulcer, Cellulitis Dc Follow-up Care: Sam Mullins ARNP [Provider Admit Priv/Credential] -
== END 2024-02-28 16:40 | disposition home health service (06) | DRG 602 ==
LOC: ED 17:28 → MS3 17:28
PROVIDERS: ADMIT Internal Medicine; ATTEND Specialist
DX: D64.9 Anemia, unspecified; Z92.21 Personal history of antineoplastic chemotherapy; E87.6 Hypokalemia; I95.9 Hypotension, unspecified; C79.63 Secondary malignant neoplasm of bilateral ovaries; E03.9 Hypothyroidism, unspecified; S90.821A Blister (nonthermal), right foot, initial encounter; R64 Cachexia; L03.115 Cellulitis of right lower limb; T45.1X5A Adverse effect of antineoplastic and immunosuppressive drugs, initial encounter; M79.89 Other specified soft tissue disorders; Z66 Do not resuscitate; D64.81 Anemia due to antineoplastic chemotherapy; Z79.899 Other long term (current) drug therapy; R19.5 Other fecal abnormalities; E83.39 Other disorders of phosphorus metabolism; Z68.20 Body mass index [BMI] 20.0-20.9, adult; M81.0 Age-related osteoporosis without current pathological fracture; Z79.890 Hormone replacement therapy; L97.519 Non-pressure chronic ulcer of other part of right foot with unspecified severity; E86.0 Dehydration; Z79.51 Long term (current) use of inhaled steroids; E43 Unspecified severe protein-calorie malnutrition; I89.0 Lymphedema, not elsewhere classified; S90.822A Blister (nonthermal), left foot, initial encounter; X58.XXXA Exposure to other specified factors, initial encounter; Z51.5 Encounter for palliative care; R23.8 Other skin changes; C77.9 Secondary and unspecified malignant neoplasm of lymph node, unspecified; C79.51 Secondary malignant neoplasm of bone; C18.1 Malignant neoplasm of appendix